=== PATIENT | female | born 1950 | race Caucasian/White ===

== ENCOUNTER 2019-12-07 11:36 | Outpatient (CLI) | payer MEDICARE, OTHER, SELFPAY ==
[2019-12-07 12:12] LABS: Alanine Aminotransferase 27 U/L (4-35); Albumin Level 4.4 g/dL (3.5-5.1); Alkaline Phosphatase 172 U/L (38-126); Aspartate Amino Transferase 29 U/L (14-36); Bilirubin,Total 0.5 mg/dL (0.2-1.3); Blood Urea Nitrogen 31 mg/dL (7-17); Calcium 9.8 mg/dL (8.4-10.2); Carbon Dioxide 28 mmol/L (22-30); Chloride 96 mmol/L (98-107); Estimated Glomerular Filt Rate 26; Glucose 384 mg/dL (65-105); Sodium 134 mmol/L (137-145)
[2019-12-07 14:11] LABS: Hemoglobin A1C 9.5 % (<5.7)
== END 2019-12-07 11:37 | disposition home or self-care (01) ==
PROVIDERS: PCP Family Medicine; Visit Provider Family Medicine
DX: E11.9 Type 2 diabetes mellitus without complications (principal); I10 Essential (primary) hypertension
CPT/HCPCS: 36415; 80053; 83036

== ENCOUNTER 2019-12-30 13:17 | Outpatient (CLI) | payer MEDICARE, OTHER, SELFPAY ==
--- NOTE | ~2019-12-30 | US_ITS ---
EXAMINATION: US retroperitoneal comp EXAM DATE: 12/30/2019 14:26 INDICATION: For chronic kidney disease. TECHNIQUE: Multiple grayscale and Doppler images of the kidneys were obtained (by a technologist who performed the scan) and subsequently reviewed. There is no prior study for comparison. FINDINGS: There is mild bilateral renal cortical thinning, atrophy. Right kidney: There is normal contour and echogenicity. It measures 9.5 x 4.5 x 4.6 centimeters. Th ere are no focal renal lesions identified. There is no hydronephrosis. Left kidney: There is normal contour and echogenicity. It measures 9.4 x 4.9 x 3.7 centimeters. The re are no focal renal lesions identified. There is no hydronephrosis. Bladder unremarkable. IMPRESSION: 1. Mild renal cortical thinning, atrophy. Reviewed, dictated and finalized at location A.
== END 2019-12-30 13:18 | disposition home or self-care (01) ==
PROVIDERS: PCP Family Medicine; Visit Provider Internal Medicine Nephrology
DX: N18.4 Chronic kidney disease, stage 4 (severe) (principal); I12.9 Hypertensive chronic kidney disease with stage 1 through stage 4 chronic kidney disease, or unspecified chronic kidney disease; E11.9 Type 2 diabetes mellitus without complications
CPT/HCPCS: 76770

== ENCOUNTER 2020-08-01 09:30 | Outpatient (RCR) | payer MEDICARE, OTHER, SELFPAY ==
[2020-05-11 09:32] VITALS: BMI 48.4
[2020-08-01 09:38] VITALS: BMI 47.7
[2020-08-01 09:39] VITALS: BMI 47.7
== END 2020-08-09 23:59 | disposition home or self-care (01) ==
LOC: ANHDMC 09:30
PROVIDERS: PCP Family Medicine; Visit Provider Physician Assistant
DX: E11.65 Type 2 diabetes mellitus with hyperglycemia (principal); Z71.3 Dietary counseling and surveillance
CPT/HCPCS: 97802; 97803

== ENCOUNTER 2020-10-11 14:30 | Outpatient (RCR) | payer MEDICARE, OTHER, SELFPAY | END 2020-11-27 09:56 | disposition home or self-care (01) | LOC: ANHDMC 14:30 | PROVIDERS: PCP Family Medicine; Visit Provider Physician Assistant | DX: E11.65 Type 2 diabetes mellitus with hyperglycemia (principal); Z71.89 Other specified counseling | CPT/HCPCS: G0108; G0109 ==

== ENCOUNTER 2020-11-09 06:35 | Outpatient (CLI) | payer MEDICARE, OTHER, SELFPAY ==
--- NOTE | 2020-11-09 06:50 | ECHO_ITS ---
Patient Info Name: Shala Lambert Age: 70 years : 1950 Gender: Female Ht: 61 in Wt: 261 lbs BSA: 2.33 m2 HR: 60 bpm BP: 150 / 85 mmHg Technical Quality: Poor Exam Date: 11/09/2020 7:15 AM Exam Location: [facility] Patient Status: Outpatient Admit Date: 11/09/2020 Staff Ordering Physician: Kareem Yeh DO Bar Tacker: Soni Bell RDCS Attending Provider: Kareem Yeh DO Referring Physician: Rao WHITE; Exam Type: CA echo dop color flow w con Study Info Indications I35.0 - Nonrheumatic aortic (valve) stenosis Complete two-dimensional, color flow and Doppler transthoracic echocardiogram is performed with contrast to opacify the left ventricle and to improve the deliniation of the left ventricle endocardial borders. Contrast/Agitated Saline Contrast/Ag. Saline: Definity Amount: 1.00 ml Administered By: Alannah Martin RN New IV Access: Antecubital Space and Right Site Condition: IV removed and No extravasation Reason for Poor Study: patient body habitus Summary 1. Left ventricular chamber dimension is normal. 2. Definity contrast administered improved wall motion interpretation. 3. Left ventricular systolic function is normal, estimated at 65-70%. 4. The left ventricular diastolic function is grade I diastolic dysfunction. 5. E/e' 14 is mildly elevated. 6. Left atrial chamber dimension is mildly enlarged. 7. There is moderate aortic valve sclerosis. 8. There is mild aortic valve stenosis with a peak velocity of 252.88 cm/s, mean gradient of 12 mmHg, and aortic valve area of 2.02 cm2. 9. The mitral valve has mildly calcified annulus. 10. There is mild mitral valve regurgitation. 11. There is trace tricuspid valve regurgitation. 12. No pulmonary hypertension, estimated pulmonary arterial systolic pressure is 23 mmHg. Left Ventricle E/e' 14 is mildly elevated. Definity contrast administered improved wall motion interpretation. Left ventricular chamber dimension is normal. Left ventricular systolic function is normal, estimated at 65-70%. The left ventricular diastolic function is grade I diastolic dysfunction. Right Ventricle Right ventricular chamber dimension is normal. Right ventricular systolic function is normal. Left Atria Left atrial chamber dimension is mildly enlarged. Right Atria Right atrial chamber dimension is normal. Aortic Valve The aortic valve is trileaflet. There is moderate aortic valve sclerosis. There is mild aortic valve stenosis with a peak velocity of 252.88 cm/s, mean gradient of 12 mmHg, and aortic valve area of 2.02 cm2. There is no aortic valve regurgitation. Pulmonic Valve There is no pulmonic regurgitation. Mitral Valve The mitral valve has mildly calcified annulus. There is no mitral valve stenosis. There is mild mitral valve regurgitation. Tricuspid Valve There is trace tricuspid valve regurgitation. No pulmonary hypertension, estimated pulmonary arterial systolic pressure is 23 mmHg. Pericardium/Pleural There is no pericardial effusion. Inferior Vena Cava Normal inferior vena cava with >50% collapse upon inspiration consistent with normal right atrial pressure, 5 mmHg. Aorta The aortic root size at the sinus of Valsalva is normal. Left Ventricular Outflow Tract Name Value Normal
== END 2020-11-09 06:36 | disposition home or self-care (01) ==
LOC: ANHCARD 06:37
PROVIDERS: PCP Family Medicine; Visit Provider Internal Medicine Cardiovascular Disease
DX: I35.0 Nonrheumatic aortic (valve) stenosis (principal); I34.0 Nonrheumatic mitral (valve) insufficiency; I51.89 Other ill-defined heart diseases
CPT/HCPCS: C8929

== ENCOUNTER 2020-11-30 09:27 | Outpatient (CLI) | payer MEDICARE, OTHER, SELFPAY ==
--- NOTE | ~2020-11-30 | MM_ITS ---
EXAMINATION: MM screening ani BI w sofiya HISTORY: Screening TECHNIQUE: Craniocaudal and mediolateral oblique 3-D tomosynthesis images were obtained and synthetic 2-D images were generated. CAD analysis was submitted and interpreted. COMPARISON: No prior mammogram is available for comparison at this institution. BREAST PARENCHYMAL COMPOSITION: There are scattered areas of fibroglandular density. FINDINGS: There are bilateral lung benign-appearing intramammary lymph nodes. There is no evidence of suspicious mass, calcification, or architectural distortion to suggest malignancy in either breast. There has been no suspicious interval change. IMPRESSION: 1. No mammographic evidence of malignancy. 2. Recommend routine screening mammography in one year. BI-RADS Category 2: Benign finding(s). Reviewed, dictated and finalized at location A.
== END 2020-11-30 09:28 | disposition home or self-care (01) ==
PROVIDERS: PCP Family Medicine
DX: Z12.31 Encounter for screening mammogram for malignant neoplasm of breast (principal)
CPT/HCPCS: 77063; 77067

== ENCOUNTER 2020-12-21 09:15 | Outpatient (RCR) | payer MEDICARE, OTHER, SELFPAY | END 2020-12-21 11:41 | disposition home or self-care (01) | LOC: ANHDMC 09:15 | PROVIDERS: PCP Family Medicine; Referring Provider Internal Medicine Endocrinology, Diabetes & Metabolism; Visit Provider Physician Assistant | DX: E11.65 Type 2 diabetes mellitus with hyperglycemia (principal); Z71.89 Other specified counseling | CPT/HCPCS: G0108 ==

== ENCOUNTER 2021-10-26 09:44 | Outpatient (CLI) | payer MEDICARE, SELFPAY ==
--- NOTE | ~2021-10-26 | DEXA_ITS ---
Bone Density Report Name: BLAINE GIBSON Age: 71 Sex: Female Ethnicity: White Date of : 1950 Indication: postmenopausal; Referring Provider: KAROL KOROMA Study: Bone densitometry was performed. Exam Date: October 26, 2021 Accession number: [id number] Bone Density: Region BMD T-score Z-score Classification AP Spine (L1-L4) 0.826 -2.0 0.1 Osteopenia Femoral Neck (Left) 0.649 -1.8 0.0 Osteopenia Total Hip (Left) 0.936 0.0 1.4 Normal Total Hip Bilateral Avg 0.875 -0.6 0.9 Normal Femoral Neck (Right) 0.565 -2.6 -0.8 Osteoporosis Total Hip (Right) 0.813 -1.1 0.4 Osteopenia World Health Organization criteria for BMD impression classify patients as: Normal (T-score at or above -1.0), Osteopenia (T-score between -1.0 and -2.5), or Osteoporosis (T-score at or below -2.5). 10-year Fracture Risk: FRAX not reported because: Some T-score for Spine Total or Hip Total or Femoral Neck at or below -2.5 Clinical Information Provided by Patient: Has used the following medications: Vitamin D, Calcium Patient maximum height was 62.5 Menopause Age: 54 No regular weight bearing exercise Drinks caffeinated beverages Onset of menses at age 15 Number of children 3 Impression: The patient has osteoporosis, based on the Right Femoral Neck T-score. Discussion: INCREASED RISK OF FRACTURE. BONE DENSITY IS UNDESIRABLY LOW AT ONE OR MORE SKELETAL SITES, CONSISTENT WITH POSTMENOPAUSAL OSTEOPOROSIS. This patient's lowest T-score meets the World Health Organization's (WHO) criteria for osteoporosis at one or more sites (T-score -2.5 or below). In untreated patients, the risk of osteoporotic fracture increases approximately two-fold for each 1.0 SD decrease in T-score. Low bone density is not the only risk factor for fracture; also consider factors such as patient's age, frailty or poor health, risk of falling, risk of injury, previous osteoporotic fracture, family history of osteoporosis, cigarette smoking, low body weight, etc. Not everyone with low bone mineral density has osteoporosis; osteomalacia and other metabolic bone disorders should also be considered. Patients who have osteoporosis should be evaluated for specific diseases and conditions (secondary causes) that may cause or contribute to bone loss. The [place] [employer] Endocrinologists (AACE) and National Osteoporosis Foundation (NOF) recommend pharmacologic intervention for all postmenopausal women whose T-score is in this range. The patient should follow a healthful lifestyle (good nutrition with adequate calcium and vitamin D, and appropriate weight-bearing exercise). Follow-Up: Consider a repeat BMD and Vertebral Fracture Assessment (VFA) exam in 2 years or sooner if medically necessary, to reassess this patient's status. Reported by: NICOLLE on 10/26/2021
== END 2021-10-26 09:45 | disposition home or self-care (01) ==
LOC: ANHIMG 09:45
PROVIDERS: PCP Family Medicine; Visit Provider Family Medicine
DX: Z78.0 Asymptomatic menopausal state (principal); M85.88 Other specified disorders of bone density and structure, other site; M85.851 Other specified disorders of bone density and structure, right thigh; M85.852 Other specified disorders of bone density and structure, left thigh; M81.0 Age-related osteoporosis without current pathological fracture
CPT/HCPCS: 77080

== ENCOUNTER 2021-12-11 15:23 | Emergency (ER) | payer MEDICARE, OTHER, SELFPAY ==
[2021-12-11] VITALS (8 sets, daily range): BP systolic 141–175; BP diastolic 71–98; PULSE 67–82; RESP 16–26; TEMP 36.6; O2SAT 94–99
--- NOTE | ~2021-12-11 | XR_ITS ---
XR chest 2V DATE: 12/11/2021 15:45 INDICATION: Shortness of breath and headache for a few days. Tachypnea. History of hypertension. TECHNIQUE: PA and lateral views COMPARISON: 07/07/2014 PA and lateral chest FINDINGS: Cardiomegaly. Aortic calcification. Moderate hiatal hernia. No pulmonary infiltrate or consolidation, pleural effusion or pulmonary vascular congestion or pneumo thorax is detected. Diffuse osteopenia. IMPRESSION: Cardiomegaly Aortic calcification Hiatal hernia No active pulmonary disease Reviewed, dictated and finalized at location A.
--- NOTE | ~2021-12-11 | CT_ITS ---
EXAMINATION: CTA chest PE protocol DATE: 12/11/2021 20:47 INDICATION: Shortness of breath TECHNIQUE: Computed tomography angiography (CTA) of the chest was performed with 100 mL Omnipaque-350 intravenous contrast timed to evaluate the pulmonary arteries. Coronal maximum intensity projection 3D-reconstructions were created by the technologist. The dose-length product (DLP) was 753.37 mGy-cm. Automated exposure control and iterative reconstruction technique were employed. COMPARISON: None. FINDINGS: The pulmonary arteries are well-opacified. No pulmonary embolism is identified. There is mi ld dependent atelectasis. No pleural effusion or pneumothorax is identified. Cardiomegaly is noted. T here are no pathologically enlarged thoracic lymph nodes. There is a moderate-sized hiatal hernia. Th ere is severe thoracic spondylosis. IMPRESSION: 1. No pulmonary embolism or acute cardiopulmonary abnormality. Reviewed, dictated and finalized at location F.
--- NOTE | 2021-12-11 15:26 | ECG_ITS ---
Measurements Intervals [place] Rate: 74 P: 43 AL: 163 QRS: -9 QRSD: 145 T: 13 QT: 433 QTc: 481 Interpretive Statements SINUS RHYTHM RIGHT BUNDLE BRANCH BLOCK [120+ ms QRS DURATION, UPRIGHT V1, 40+ ms S IN I/aVL/V4/V5/V6] NO PREVIOUS ECG AVAILABLE FOR COMPARISON Electronically Signed On 12-12-2021 13:38:44 CDT by Gris Cavazos M.D.
[2021-12-11 16:06] LABS: Basophils Absolute Auto 0.1 K/mm3 (0.0-0.1); Basophils Percent Auto 0.5 % (0.2-1.2); Eosinophils Absolute Auto 0.2 K/mm3 (0-0.3); Hematocrit 37.7 % (37.0-47.0); Hemoglobin 11.9 g/dL (12.0-15.0); Immature Granulocyte Absolute 0.04 K/mm3 (0.00-0.031); Immature Granulocyte Percent A 0.4 % (0-0.5); Lymphocytes Absolute Auto 1.97 K/mm3 (0.9-3.2); Lymphocytes Percent Auto 19.8 % (18.3-44.2); Mean Corpuscular HGB Conc 31.6 g/dl (32-36); Mean Corpuscular Hemoglobin 28.3 pg (26-34); Mean Corpuscular Volume 89.8 fl (80-100); Mean Platelet Volume 9.8 fl (7.4-10.4); Monocytes Absolute Auto 0.7 K/mm3 (0.1-0.6); Monocytes Percent Auto 6.8 % (2.6-8.5); Neutrophils Percent Auto 70.5 % (45.5-73.1); Platelet Count Result 328 k/mm3 (150-375); Red Cell Distribution Width 13.2 % (11.5-14.5); White Blood Count 9.9 K/mm3 (4.5-10.0)
[2021-12-11 16:15] LABS: Alanine Aminotransferase 41 U/L (4-35); Albumin Level 4.2 g/dL (3.5-5.1); Alkaline Phosphatase 166 U/L (38-126); Anion Gap 6 mmol/L (8-16); Aspartate Amino Transferase 44 U/L (14-36); Bilirubin,Total 0.3 mg/dL (0.2-1.3); Blood Urea Nitrogen 25 mg/dL (7-17); Calcium 9.2 mg/dL (8.4-10.2); Carbon Dioxide 28 mmol/L (22-30); Chloride 100 mmol/L (98-107); Estimated CRCL calculation 61 ml/min; Estimated Glomerular Filt Rate 55; Glucose 383 mg/dL (65-110); Potassium 4.1 mmol/L (3.4-5.0); Sodium 134 mmol/L (137-145)
[2021-12-11 17:03] LABS: Add Urine Microscopic? YES; Appearance Urine Clear (Clear); Bacteria Urine Trace /hpf; Bilirubin Urine Negative (Negative); Blood Urine Negative (Negative); Color Urine Yellow (Yellow); Glucose Urine UA 3+ mg/dL (Negative); Ketones Urine Negative (Negative); Leukocyte Esterase Ur Negative LEU/UL (Negative); Mucus Urine Rare /lpf; Nitrate Urine Negative (Negative); Protein Urine Negative (Negative); RBC Urine 0-2 /hpf (0-2); Specific Grav Ur 1.014 (1.001-1.035); Squamous Epithelial Cell Urine Occasional /hpf (Few); Urobilinogen Urine Negative mg/dL (<2.0); WBC Urine 0-3 /hpf
--- NOTE | 2021-12-11 19:16 | ED.SOB ---
HPI - SOB/Dyspnea General Chief Complaint: Shortness of Breath/Dyspnea Stated Complaint: shortness of breath Time Seen by Provider: 12/11/21 18:59 Source: patient Mode of arrival: ambulatory Limitations: no limitations History of Present Illness HPI Narrative: Pt presents with SOB for 8 days. Pt reports gradual onset. Pt denies CP. Pt says SOB is worse with exertion. Pt presents with cough with some yellow sputum production. MD elicited complaint: shortness of breath, cough, pain with inspiration (none) and chest pain (none) Pertinent past history: congestive heart failure and diabetes Context: recent illness (cold symptoms) Timing: progressively worsening Severity: moderate Exacerbating factors: lying flat and exertion Relieving factors: nothing Known history of: congestive heart failure and diabetes Associated symptoms: wheezing and sputum production Related Data Home Medications Medication Instructions Recorded Confirmed calcium carbonate 500 mg calcium 1,000 mg PO DAILY tablet 08/19/19 11/06/21 (1,250 mg) chewable tablet ferrous sulfate 325 mg (65 mg 325 mg PO DAILY 08/19/19 11/06/21 iron) tablet krill [id number] 300 3 cap PO DAILY cap 04/27/20 11/06/21 mg-90 mg (27 mg-45 mg) capsule cholecalciferol (vitamin D3) 50 50 mcg PO DAILY 11/06/21 11/06/21 mcg (2,000 unit) capsule Allergies Allergy/AdvReac Type Severity Reaction Status Date / Time Penicillins Allergy Unknown Rash Verified 12/11/21 18:58 metformin AdvReac Severe Diarrhea Verified 12/11/21 18:58 Review of Systems Review of Systems: All systems reviewed & are unremarkable except as noted in HPI and below PMFSH Past Medical History Medical History (Updated 12/11/21 @ 21:38 by Tiffany Alexandre III, ) Anemia Arthritis, multiple joint involvement Chronic pain of right ankle Dyslipidemia GERD (gastroesophageal reflux disease) Hemoglobin A1c greater than 8.0 percent 08/01/20 A1c = 8.3 Hypertension Iron deficiency Morbid obesity with BMI of 50.0-59.9, adult SOFIA on CPAP Osteoporosis SOB (shortness of breath) Trigger finger, right ring finger Type 2 diabetes mellitus with hyperglycemia Vitamin D deficiency Surgical History Surgical History History of carpal tunnel release left, 09/11/2011, Dr. Chew History of open reduction and internal fixation (ORIF) procedure right ankle History of tubal ligation Hx of arthroscopy of right knee 06/29/2014- Dr. Chew Family History Family History Sibling Diabetes mellitus Father Family history of hypercholesterolemia Family history of cardiovascular disease Family history of coronary artery disease Family history of thoracic aortic aneurysm Mother Family history of malignant neoplasm of ovary Other Cancer Cerebrovascular accident Family history of arthritis Family history of malignant neoplasm Family history of malignant neoplasm of esophagus Hearing loss Hypertension Liver cancer Prostate disease Social History Social History Second hand tobacco smoke exposure: Yes Alcohol intake: current Alcohol use details: Rarely Substance use: never Substance use type: does not use Additional occupation/education comments: Works apartment community manager at the school Gender identity (if verbalized by the patient): Female Spiritual care concerns: No Agree to blood products: Yes Exam Const: General: no acute distress Orientation/consciousness: patient oriented x3 HENMT: Head: normal to inspection Chest: Chest palpation & inspection: normal inspection of the chest Resp: Effort & Inspection: normal respiratory effort Auscultation: wheezes Cardio: Rate: regular rate Rhythm: regular rhythm GI: GI Palp: Yes Soft to palpation Auscultation: normal bowel sounds Neuro: General: patient o
[2021-12-11] MEDS: IPRATROPIUM BR 0.02% INH SOLN 0.5 MG/2.5 ML VIAL INHALATION (19:19)
[2021-12-11] MEDS: ALBUTEROL SULFATE NEB 2.5 MG/0.5 ML INH INHALATION ×2 (19:19→21:10)
[2021-12-11 19:38] LABS: NT Pro B Type Natriuretic Pept 132 pg/mL (5-100); Troponin I < 0.012 ng/mL (0.000-0.034)
[2021-12-11 20:00] LABS: D Dimer 1.19 ug/mL (<0.48)
[2021-12-11] MEDS: methylPREDNISolone SOD SUCC 125 MG VIAL IV PUSH (21:19)
== END 2021-12-11 22:10 | disposition home or self-care (01) ==
PROVIDERS: Emergency Medicine; Emergency Provider Emergency Medicine; PCP Family Medicine
DX: J20.9 Acute bronchitis, unspecified (principal); I50.9 Heart failure, unspecified; E11.9 Type 2 diabetes mellitus without complications; E78.5 Hyperlipidemia, unspecified; I11.0 Hypertensive heart disease with heart failure; E66.01 Morbid (severe) obesity due to excess calories; G47.33 Obstructive sleep apnea (adult) (pediatric); Z79.899 Other long term (current) drug therapy; Z88.0 Allergy status to penicillin; Z88.8 Allergy status to other drugs, medicaments and biological substances; Z68.43 Body mass index [BMI] 50.0-59.9, adult
CPT/HCPCS: 36415; 71046; 71275; 80053; 81001; 83880; 84484; 85025; 85380; 93005; 94640; 96374; 99285; J2930; Q9967

== ENCOUNTER 2022-03-06 11:42 | Outpatient (CLI) | payer MEDICARE, OTHER, SELFPAY ==
--- NOTE | ~2022-03-06 | MM_ITS ---
EXAMINATION: MM screening ani BI w sofiya HISTORY: Screening TECHNIQUE: Craniocaudal and mediolateral oblique 3-D tomosynthesis images were obtained and synthetic 2-D images were generated. CAD analysis was submitted and interpreted. COMPARISON: 11/30/2020 BREAST PARENCHYMAL COMPOSITION: There are scattered areas of fibroglandular density. FINDINGS: There is no evidence of suspicious mass, calcification, or architectural distortion to sugg est malignancy in either breast. There has been no suspicious interval change. IMPRESSION: 1. No mammographic evidence of malignancy. 2. Recommend routine screening mammography in one year. BI-RADS Category 1: Negative Reviewed, dictated and finalized at location D.
== END 2022-03-06 11:43 | disposition home or self-care (01) ==
LOC: ANHIMG 11:49
PROVIDERS: PCP Family Medicine; Visit Provider Family Medicine
DX: Z12.31 Encounter for screening mammogram for malignant neoplasm of breast (principal)
CPT/HCPCS: 77063; 77067

== ENCOUNTER 2022-11-19 12:23 | Outpatient (CLI) | payer MEDICARE, SELFPAY ==
--- NOTE | 2022-11-19 12:26 | ECHO_ITS ---
Patient Info Name: Shala Lambert Age: 72 years : 1950 Gender: Female Ht: 61 in Wt: 255 lbs BSA: 2.31 m2 HR: 68 bpm BP: 118 / 77 mmHg Technical Quality: Fair Exam Date: 11/19/2022 12:49 PM Exam Location: [facility] Patient Status: Outpatient Admit Date: 11/19/2022 Staff Ordering Physician: Kareem Yeh DO Avionics Supervisor: Soni Bell RDCS Attending Provider: Kareem Yeh DO Referring Physician: Rao WHITE; Exam Type: CA echo dop color flow w con Study Info Indications I35.0 - Nonrheumatic aortic (valve) stenosis Complete two-dimensional, color flow and Doppler transthoracic echocardiogram is performed with contrast to opacify the left ventricle and to improve the deliniation of the left ventricle endocardial borders. Contrast/Agitated Saline Contrast/Ag. Saline: Definity Amount: 4.00 ml Administered By: Soni Bell RDCS New IV Access: Dorsum of Hand Site Condition: No extravasation, Site dressing applied and IV removed Summary 1. Left ventricular chamber dimension is normal. 2. Definity contrast administered Empty wall motion interpretation. 3. Left ventricular systolic function is normal, estimated at 65-70%. 4. There is mild concentric increased left ventricular wall thickness. 5. The left ventricular diastolic function is grade I diastolic dysfunction. 6. E/e' 14 is mildly elevated. 7. Left atrial chamber dimension is moderately enlarged. 8. There is moderate aortic valve sclerosis. 9. There is mild aortic valve stenosis with a peak velocity of 254.95 cm/s, mean gradient of 12 mmHg, and aortic valve area of 2.03 cm2. 10. The mitral valve has mildly calcified annulus. 11. No pulmonary hypertension, estimated pulmonary arterial systolic pressure is 26 mmHg. Left Ventricle E/e' 14 is mildly elevated. Definity contrast administered Empty wall motion interpretation. Left ventricular chamber dimension is normal. Left ventricular systolic function is normal, estimated at 65-70%. There is mild concentric increased left ventricular wall thickness. The left ventricular diastolic function is grade I diastolic dysfunction. Right Ventricle Right ventricular chamber dimension is normal. Right ventricular systolic function is normal. Left Atria Left atrial chamber dimension is moderately enlarged. Right Atria Right atrial chamber dimension is normal. Aortic Valve The aortic valve is probable trileaflet. There is moderate aortic valve sclerosis. There is mild aortic valve stenosis with a peak velocity of 254.95 cm/s, mean gradient of 12 mmHg, and aortic valve area of 2.03 cm2. There is no aortic valve regurgitation. Pulmonic Valve There is no pulmonic regurgitation. Mitral Valve The mitral valve has mildly calcified annulus. There is no mitral valve stenosis. There is no mitral valve regurgitation. Tricuspid Valve There is no tricuspid valve regurgitation. No pulmonary hypertension, estimated pulmonary arterial systolic pressure is 26 mmHg. Pericardium/Pleural There is no pericardial effusion. Inferior Vena Cava Normal inferior vena cava with >50% collapse upon inspiration consistent with normal right atrial pressure, 5 mmHg. Aorta The aortic root size at the sinus of Valsalva is normal. Left Ventricular Outflow Tract Name Value Normal
[2022-11-19] MEDS: PERFLUTREN LIPID MICROSPHERES 1.5 ML VIAL DILUTED TO 10 ML TOTAL VOLUME IV PUSH (13:50)
== END 2022-11-19 12:24 | disposition home or self-care (01) ==
LOC: ANHCARD 12:24
PROVIDERS: PCP Family Medicine; Visit Provider Internal Medicine Cardiovascular Disease
DX: I35.0 Nonrheumatic aortic (valve) stenosis (principal); I35.8 Other nonrheumatic aortic valve disorders
CPT/HCPCS: C8929; Q9957

== ENCOUNTER 2023-07-22 16:38 | Outpatient (CLI) | payer MEDICARE, SELFPAY ==
--- NOTE | ~2023-07-22 | MM_ITS ---
EXAMINATION: MM screening ani BI w sofiya HISTORY: Screening mammogram TECHNIQUE: Craniocaudal and mediolateral oblique 3-D tomosynthesis images were obtained and synthetic 2-D images were generated. CAD analysis was submitted and interpreted. COMPARISON: 03/06/2022, 11/30/2020 BREAST PARENCHYMAL COMPOSITION: There are scattered areas of fibroglandular density. FINDINGS: No suspicious mass, calcification, or architectural distortion are identified in either myriam ast to suggest malignancy. There has been no suspicious interval change. IMPRESSION: 1. No mammographic evidence of malignancy. 2. Recommend routine screening mammography in one year. BI-RADS Category 1: Negative Reviewed, dictated and finalized at location A. SETTER APPRENTICE
== END 2023-07-22 16:39 | disposition home or self-care (01) ==
PROVIDERS: PCP Family Medicine; Visit Provider Family Medicine
DX: Z12.31 Encounter for screening mammogram for malignant neoplasm of breast (principal)
CPT/HCPCS: 77063; 77067

== ENCOUNTER 2023-10-30 10:24 | Outpatient (CLI) | payer MEDICARE, SELFPAY ==
[2023-10-30 11:00] LABS: Alanine Aminotransferase 26 U/L (6-35); Aspartate Amino Transferase 29 U/L (14-36)
== END 2023-10-30 10:25 | disposition home or self-care (01) ==
LOC: ANHLAB 10:28
PROVIDERS: PCP Family Medicine; Visit Provider Podiatrist Foot & Ankle Surgery
DX: B35.1 Tinea unguium (principal)
CPT/HCPCS: 36415; 84450; 84460

== ENCOUNTER 2023-11-19 10:27 | Outpatient (CLI) | payer MEDICARE, SELFPAY ==
--- NOTE | ~2023-11-19 | DEXA_ITS ---
Bone Density Report Name: BLAINE GIBSON Age: 73 Sex: Female Ethnicity: White Date of : 1950 Indication: postmenopausal; screening for osteoporosis; height loss; history of glucocorticoids; hysterectomy; Referring Provider: RONEN CARRILLO Study: Bone densitometry was performed. Exam Date: November 19, 2023 Accession number: [id number] Bone Density: Region BMD T-score Z-score Classification AP Spine(L1-L4) 0.842 -1.9 0.3 Osteopenia Femoral Neck (Left) 0.617 -2.1 -0.2 Osteopenia Total Hip (Left) 0.980 0.3 1.9 Normal Femoral Neck (Right) 0.607 -2.2 -0.3 Osteopenia Total Hip (Right) 0.834 -0.9 0.7 Normal Total Hip Mean 0.907 -0.3 1.3 Normal World Health Organization criteria for BMD impression classify patients as: Normal (T-score at or above -1.0), Osteopenia (T-score between -1.0 and -2.5), or Osteoporosis (T-score at or below -2.5). 10-year Fracture Risk: FRAX not reported because: Treated for osteoporosis Clinical Information Provided by Patient: Has taken Glucocorticoids Is being treated for osteoporosis Has used the following medications: Vitamin D Has the following medical conditions: Hysterectomy Patient maximum height was 62 Menopause Age: 57 No regular weight bearing exercise Drinks caffeinated beverages Onset of menses at age 15 Number of children 3 Impression: The patient has low bone mass, based on the Right Femoral Neck T-score. The patient has risk factors, including: history of glucocorticoid therapy. Discussion: It is important to ask patients whether they are taking their medications and to encourage continued and appropriate compliance with their osteoporosis therapies to reduce fracture risk. It is also important to review their risk factors and encourage appropriate calcium and vitamin D intakes, exercise, fall prevention and other lifestyle measures. Follow-Up: Consider a repeat BMD and Vertebral Fracture Assessment (VFA) exam in 2 years or sooner if medically necessary, to reassess this patient's status. Reported by: NICOLLE on 11/19/2023 11:00:00 AM. Reviewed, dictated and finalized at location A. [place]
== END 2023-11-19 10:28 | disposition home or self-care (01) ==
LOC: ANHIMG 10:28
PROVIDERS: PCP Family Medicine; Visit Provider Nurse Practitioner Family
DX: Z78.0 Asymptomatic menopausal state (principal); R79.89 Other specified abnormal findings of blood chemistry; E55.9 Vitamin D deficiency, unspecified; M85.89 Other specified disorders of bone density and structure, multiple sites
CPT/HCPCS: 77080

== ENCOUNTER 2024-01-21 11:36 | Outpatient (CLI) | payer MEDICARE, SELFPAY ==
[2024-01-21 12:26] LABS: Creatinine Urine 37.1 mg/dL; Total Protein Urine Random 8 mg/dL; Ur Ttl Prot Creatinine Ratio 0.22 mg/mg (0-0.20)
[2024-01-21 12:27] LABS: Albumin Level 4.3 g/dL (3.5-5.1); Anion Gap 6 mmol/L (4-12); Blood Urea Nitrogen 33 mg/dL (7-17); Carbon Dioxide 28 mmol/L (22-30); Chloride 104 mmol/L (98-107); Estimated Glomerular Filt Rate 34; Glucose 211 mg/dL (65-110); Phosphorus 3.5 mg/dL (2.5-4.5); Sodium 138 mmol/L (137-145)
[2024-01-21 12:39] LABS: Parathyroid Intact 107.7 pg/mL (7.5-53.5)
[2024-01-21 12:52] LABS: Vitamin D 25 Hydroxy 50.4 ng/mL
== END 2024-01-21 11:37 | disposition home or self-care (01) ==
LOC: ANHLAB 11:40
PROVIDERS: PCP Family Medicine; Visit Provider Internal Medicine Nephrology
DX: N18.32 Chronic kidney disease, stage 3b (principal); I12.9 Hypertensive chronic kidney disease with stage 1 through stage 4 chronic kidney disease, or unspecified chronic kidney disease; E11.22 Type 2 diabetes mellitus with diabetic chronic kidney disease; N25.81 Secondary hyperparathyroidism of renal origin; E55.9 Vitamin D deficiency, unspecified
CPT/HCPCS: 36415; 80069; 82306; 82570; 83970; 84156

== ENCOUNTER 2024-05-06 08:28 | Outpatient (CLI) | payer MEDICARE, SELFPAY ==
[2024-05-06 09:24] LABS: Cholesterol 171 mg/dL (0-200); HDL Direct 59 mg/dL; Triglycerides 215 mg/dL (<150)
[2024-05-06 09:29] LABS: Albumin Level 4.5 g/dL (3.5-5.1); Anion Gap 7 mmol/L (4-12); Blood Urea Nitrogen 23 mg/dL (7-17); Calcium 9.9 mg/dL (8.4-10.2); Carbon Dioxide 28 mmol/L (22-30); Chloride 100 mmol/L (98-107); Estimated Glomerular Filt Rate 44; Glucose 163 mg/dL (65-110); Phosphorus 3.2 mg/dL (2.5-4.5); Potassium 4.2 mmol/L (3.4-5.0); Sodium 135 mmol/L (137-145)
[2024-05-06 09:35] LABS: LDL Cholesterol Direct 70 mg/dL
[2024-05-06 10:22] LABS: Creatinine Urine 32.7 mg/dL; Total Protein Urine Random 12 mg/dL; Ur Ttl Prot Creatinine Ratio 0.37 mg/mg (0-0.20)
== END 2024-05-06 08:29 | disposition home or self-care (01) ==
LOC: ANHLAB 08:32
PROVIDERS: PCP Family Medicine; Referring Provider Family Medicine; Visit Provider Internal Medicine Nephrology
DX: I12.9 Hypertensive chronic kidney disease with stage 1 through stage 4 chronic kidney disease, or unspecified chronic kidney disease (principal); N18.32 Chronic kidney disease, stage 3b; E11.22 Type 2 diabetes mellitus with diabetic chronic kidney disease; E78.2 Mixed hyperlipidemia
CPT/HCPCS: 36415; 80061; 80069; 82570; 84156

== ENCOUNTER 2024-09-13 12:07 | Outpatient (CLI) | payer MEDICARE, SELFPAY ==
--- OUTSIDE RECORDS SUMMARY | 2024-09-13 12:49 | XMS_ITS | Clinical Summary ---
Author Organization [facility] Address [address] [place] [address] Care Team Providers Care [employer] Electric Locomotive Name Role Phone Windy Stark MD Unavailable [phone] Alexa Roberts MD Primary Care Provider [phone] Allergies Active Allergy Reactions Criticality Noted Date Comments Metformin Diarrhea Low 12/26/2019 Penicillin G Rash Medium 07/06/2019 Penicillins Rash Medium 02/06/2022 Medications traMADoL (ULTRAM) 50 mg tabletIndicatio ns:Pain Take 1 tablet (50 mg total) by mouth every 6 (six) hours as needed 11/20/2021 Active rosuvastatin (CRESTOR) 40 mg tabletIndicatio ns:hyperlipidem ia Take 1 tablet (40 mg total) by mouth nightly 01/02/2022 Active irbesartan (AVAPRO) 300 mg tabletIndicatio ns:hypertension Take 1 tablet (300 mg total) by mouth every morning 12/25/2021 Active insulin lispro (HumaLOG, ADMELOG) 100 unit/mL pen for injectionIndica tions:type 2 diabetes mellitus 01/23/2022 Active LANTUS 100 unit/mL (3 mL) pen for injectionIndica tions:DM2 Inject 38 Units under the skin every morning 02/01/2022 Active hydroCHLOROthia zide (HYDRODIURIL) 25 mg tabletIndicatio ns:Edema Take 1 tablet (25 mg total) by mouth every morning 11/19/2021 Active gabapentin (NEURONTIN) 100 mg capsuleIndicati ons:Neuropathic Pain Take 1 capsule (100 mg total) by mouth 3 (three) times a day Usually just take at night 10/11/2021 Active FLUoxetine (PROzac) 20 mg capsuleIndicati ons:depression Take 1 capsule (20 mg total) by mouth every morning 11/28/2021 Active omega-3s/dha/ep a/fish oil (OMEGA 3 ORAL)Indication s:Heart health Take 1 capsule by mouth 2 (two) times a day Active ferrous sulfate 325 mg (65 mg of elemental iron) tabletIndicatio ns:Iron Deficiency Anemia Take 1 tablet (325 mg total) by mouth every morning Active cholecalciferol (VITAMIN D-3) 2000 unit capsuleIndicati ons:Vitamin D Deficiency Take 1.5 capsules (3,000 Units total) by mouth every morning Active famotidine (PEPCID) 10 mg tabletIndicatio ns:gastroesopha geal reflux disease Take 1 tablet (10 mg total) by mouth nightly Active acetaminophen ER (TYLENOL) 650 mg 8 hr tabletIndicatio ns:Arthritic Pain,Pain Take 1 tablet (650 mg total) by mouth every 8 (eight) hours as needed for pain Active ascorbic acid (VITAMIN C) 500 mg tablet,chewable Indications:sup plement Take 1 tablet/chew tab (500 mg total) by mouth daily with lunch Active Gvoke HypoPen 2-Pack 1 mg/0.2 mL auto-injector 10/30/2022 Activ e TechLITE Pen Needle 31 gauge x 5/16 needle USE FOUR TIMES DAILY 09/03/2022 Active Farxiga 10 mg tablet Take 10 mg by mouth every morning 10/25/2022 Active Ozempic 2 mg/dose (8 mg/3 mL) pen injector injection 09/02/2022 Active Active Problems Problem Noted Date Diagnosed Date Chronic kidney disease 07/09/2022 Diastolic heart failure 07/09/2022 Morbid obesity 07/09/2022 Osteoarthritis 07/09/2022 Screening for cervical cancer 02/12/2022 Overview (02/12/2022): 02/06/22 - Pap - Negative, HPV negative Women's annual routine gynecological examination 02/06/2022 Assessment & Plan (11/07/2022 11:01 AM CDT): Here for annual exam. Normal rollway man exam today. Encouraged regular exercise and healthy diet and lifestyle. Monthly SBEs encouraged. Annual mammograms recommended. Assessment & Plan (02/06/2022 12:33 PM CDT): Check pap with HPV - been over a year since her last pap and pt has h/o LEEP. See notes on obtaining sample. Reviewed I feel this will be helpful in guiding plan of care. Patient verbalizes understanding. H/O pelvic ultrasound 02/06/2022 Overview (02/06/2022): 01/2022 US for PMB: EMC 1.2cm. R OV NL. L Adnexa ~3.4cm hypoechoic mass ovary v. Bowel. suboptimal visualization due to bowel/pt habitus. Right atrial enlargement 02/07/2021 Sleep apnea 05/10/2015 Depressive disorder 03/29/2015 Diabetes mellitus 03/29/2015 Gastroesophageal reflux disease 03/29/2015 Hypercholesterolemia 03/29/2015 Hypertensive disorder 03/29/2015 Osteopenia 03/29/2015 Resolved Problems Problem Noted Date Diagnosed Date Resolved Date Postoperative state 09/30/2022 11/08/19 Postmenopausal bleeding 02/13/202208/18 Overview (02/13/2022): Added automatically from request for surgery [id number] Assessment & Plan (05/20/2022 1:47 PM CDT): Discussed ultrasound findings with patient in detail today. Lining is still appears somewhat thickened for someone postmenopausal. It is unclear whether patient had postmenopausal spotting again or if it was withdrawal from the progesterone medication since it was more than a week after completing the medication. Patient desires 2nd opinion with rollway man oncologist. Assessment & Plan (03/15/2022 4:13 PM CDT): Discussed with patient the potential risk of undiagnosed abnormal cells of the uterine lining or uterine cancer. Discussed the option of seeing [facility] Oncology for 2nd opinions and pathology was negative. I recommend patient see [facility] Oncology if she has any additional recurrence postmenopausal bleeding. Patient prefers not to see them at this time unless she has additional bleeding. I recommend progesterone withdrawal at the beginning of March with follow-up ultrasound to make sure the lining appears thinner. Patient agreeable to this plan. Patient to call with any problems.. Discussed risks benefits and potential side effects of the medication. Thickened endometrium 02/06/20222022 Assessment & Plan (02/06/2022 2:52 PM CDT): Us today revealed thickened EMC. R/w pt. Discussed need for endometrial biopsy to rule out uterine cancer with Hyst D&C. Also discussed that due to adnexal finding we need to have CWW US to evaluate first before doing Hyst D&C with Dr. Stark. Reviewed procedure and expectations, risks. Gave pt pamphlet for her to review. Will notify staff to start process of setting up. Patient verbalizes understanding. Reviewed visit with Dr. Stark - agrees with plan of care. Sent for cosign. Mass of uterine adnexa 02/06/202209/03 Overview (02/12/2022): 01/2022: CA125 WNL. F/U US at [facility] shows 2 benign appearing simple cysts left ovary Assessment & Plan (02/06/2022 12:32 PM CDT): R/w pt US findings. Discussed it's limiting to see if this is an adnexa mass or bowel. Recommend checking CWW US to further evaluate adnexa. Check CA 125 to help guide us as well. Reviewed limitations of CA 125 but why we do it. Patient verbalizes understanding. Immunizations Name Administration Dates Next Due Influenza, Quadrivalent, Spl it, Intramuscular 06/14/2019 Pneumococcal Polysaccharide PPV23 08/21/2011 Sars-CoV-2, Unspecified 05/27/2021,12/25/2020, Tdap 08/21/2011 Surgical History Surgery Date Site/Laterality Comments TUBAL LIGATION FOOT SURGERY Right tumor removed EYE SURGERY Blocked gland CARPAL TUNNEL RELEASE 08/18/2004 - 08/17/2005 Bilateral left KNEE SURGERY Bilateral CERVICAL BIOPSY W/ LOOP ELECTRODE EXCISION Benign - margins clear PARTIAL KNEE ARTHROPLASTY 12/12/2013 MENISCUS SURGERY 07/01/2014 Right TOTAL ANKLE REPLACEMENT 01/21/2017 CARPAL TUNNEL RELEASE 08/18/1994 - 08/17/1995 Right HYSTEROSCOPY 03/04/2022 D&C for PMB / thick lining but path negative LAPAROSCOPIC HYSTERECTOMY 08/20/2022 TLHBSO/ benign path/ [facility] Medical History Medical History Date Comments Right atrial enlargement Sees [facility] rdiology Sleep apnea Diabetes mellitus (HCC) Depression Hyperlipemia Hypertension GERD (gastroesophageal reflux disease) Osteoporosis Covid-19 02/13/2022 Family History Medical History Relation Name Comments 84y, angina Father Esophageal cancer Father Prostate cancer Father Diabetes Maternal Grandmother Ovarian cancer Mother Passed at 47 yo. Liver disease Paternal Grandmother Hypertension Sister Relation Name Status Comments Father Maternal Grandmother Mother Paternal Grandmother Sister Social History Tobacco Use Types Packs/Day Years Used Date Smoking Tobacco: Never Passive Smoke Exposure: Current Smokeless Tobacco: Never AUDIT-C Answer Date Recorded Frequency of Alcohol Consumption Not on file 11/07/2022 Q2: How many drinks containi ng alcohol do you have on a typical day when you are drinking? 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[employer] - [employer] Not on file Not on file Not on file Obstetrics History Para Term AB IAB SAB Ectopic Multiple Livin g Live Births 3 3 3 3 Date Outcome GA Total Labor Labor/2nd/3rd Weight Sex Type Anes PTL Brittany A1 A5 Name Clin Term Vag-Spo nt Term Vag-Spo nt Term Vag-Spo nt Comments H/o LEEP Me nopause at age 54y Last Filed Vital Signs Vital Sign Reading Time Taken Comments Blood Pressure 142/84 11/07/2022 10:15 AM CDT Pulse 73 09/30/2022 2:11 PM CONCRETE CONVEYOR OPERATOR Temperature 35.6 ??C (96 ??F) 09/30/2022 2:11 PM CONCRETE CONVEYOR OPERATOR Respiratory Rate 16 09/30/2022 2:11 PM CONCRETE CONVEYOR OPERATOR Oxygen Saturation 98% 09/30/2022 2:11 PM CONCRETE CONVEYOR OPERATOR Inhaled Oxygen Concentration - - Weight 116.3 kg (256 lb 6.4 oz) 023 10:15 AM CDT Height 154.9 cm (5' 1 ) 11/07/2022 10:1 5 AM CDT Body Mass Index 48.45 11/07/2022 10:15 AM CDT Plan of Treatment Health Maintenance Due Date Last Done Comments Albumin Creatinine Ratio, Urine 1952 Colon Cancer Screening-Colonoscopy 1950 Depression Screening 1950 Hepatitis C Screening 1950 Dilated Eye Exam 1952 Foot Exam 1952 Lipid Panel 1952 Hepatitis B Screening 02/28/1970 Zoster Vaccine (1 of 2) 02/28/2002 Pneumococcal vaccine 65+ (2 of 2 - PCV) 08/21/2012 08/21/2011 Breast Cancer Screening-Mammogram 09/14/2020 09/14/2019, 09/09/2017, 07/08/2016, Additional history exists DTaP/Tdap/Td Vaccine (2 - Td or Tdap) 08/21/2021 08/21/2011 Osteoporosis Screening-Bone Density Scan 09/14/2021 09/14/2019, 05/10/2015 Hemoglobin A1C 12/25/2022 06/27/2022 eGFR 07/05/2023 07/05/2022, 06/18, 01/22/2017 Fall Risk Assessment 08/20/2023 08/20/2022 Well Visit 65+ 11/08/2023 11/07/2022 Influenza Vaccine (#1) 2024 06/14/2019 Medical Devices Implanted Type Area Grocery Store Bagger Device Identifier Shelf Expiration Date Model / Serial / Lot Knee Left: Knee Screw Right: Ankle Procedures Procedure Name Priority Date/Time Associated Diagnosis Comments EGFR STAT 07/05/2022 8:33 AM CONCRETE CONVEYOR OPERATOR POCT HEMOGLOBIN A1C Routine 06/27/2022 9:39 AM CONCRETE CONVEYOR OPERATOR DEXA AXIAL SKELETON BONE DENSITY 1 OR MORE SITES Schedule Routine, Read Routine (OP Routine) 09/14/2019 10:34 AM CONCRETE CONVEYOR OPERATOR Asymptomatic menopausal state SCREENING MAMMOGRAM BILATERAL W ALFONZO Schedule Routine, Read Routine (OP Routine) 09/14/2019 10:09 AM CONCRETE CONVEYOR OPERATOR Encounter for screening mammogram for malignant neoplasm of breast from Last 3 Months or Most Recently Relevant to Health Maintenance Results * (ABNORMAL) eGFR (07/05/2022 8:33 AM CONCRETE CONVEYOR OPERATOR) eGFR 45(L) 90 - 130 mL/min/1. 73 m2 [facility] Comment: Interpretive Data Reference Interval Normal ?>/= 90 mL/min/1.73m2 Mildly decreased* ? 60 - 89 mL/min/1.73m2 Mildly to moderately decreased ?45 - 59 mL/min/1.73m2 Moderately to severely decreased ??30 - 44 mL/min/1.73m2 Severely decreased ?15 - 29 mL/min/1.73m2 Kidney Failure ?< 15 ??mL/min/1.73m2 *Relative to young adult level Estimated glomerular filtration rate is determined by the 2020 CKD-EPI equation recommended by the National Kidney Foundation (A Unifying Approach to GFR Estimation: Recommendations of the NKF-ASK Task Force on Reassessing the Inclusion of Race in Diagnosing Kidney Disease, JASN 202). The CKD-EPI equation should not be used for patients with unstable renal function and has not been validated in children and those over 70. Current interpretive data was last reviewed 2021. Blood 07/05/2022 8:33 AM CONCRETE CONVEYOR OPERATOR 07/05/2022 8:52 AM CONCRETE CONVEYOR OPERATOR us David Jiménez MD PhD LAB BLOOD ORDERABLES Fi nal Result [facility] Department [place] [address] * (ABNORMAL) POCT hemoglobin A1c (06/27/2022 9:39 AM CONCRETE CONVEYOR OPERATOR) Hgb A1C, POC 8.8(H) 4.0 - 5.6 % [facility] Est Average Gluc POC 206 mg/dL [facility] Comment: The ADA recommends reporting an estimated Average Glucose (eAG) with all Hemoglobin A1c results using the equation derived from a study of 507 normal and diabetic adults. ??Minority populations were underrepresented and children were not included. ?? (Diabetes Care 31:1479-8614, 2008). ??The eAG is not equivalent to a fasting glucose. Blood 06/27/2022 9:39 AM CONCRETE CONVEYOR OPERATOR 06/27/2022 9:39 AM CONCRETE CONVEYOR OPERATOR Windy Stark MD POINT OF CARE TEST ORDERABL ES Final Result [facility] Department [place] [address] * Dexa Axial Skeleton Bone Density 1 or 2 Site (09/14/2019 10:34 AM CONCRETE CONVEYOR OPERATOR) Anatomical Region Laterality Modality Body N/A Digital Radiogra phy 09/14/2019 1:03 PM CONCRETE CONVEYOR OPERATOR Impressions 09/14/2019 1:06 PM CONCRETE CONVEYOR OPERATOR Low bone mass (osteopenia) which depending on the clinical circumstances may result in a moderate increased risk of fragility fracture. If followup is to be done, for technical reasons, it should be performed on this same machine. Electronically signed by: Saturnino Marion M.D. Narrative 09/14/2019 1:06 PM CONCRETE CONVEYOR OPERATOR EXAM: ??Bone mineral density [facility]. HISTORY: ??Osteopenia postmenopausal. DXA BMD was done at [facility] on a Heyzap CI. Precision testing at this site has resulted in a least significant change of: Lumbar spine 0.031 g/sq cm Total Hip 0.026 g/sq cm Femoral neck 0.041 g/sq cm BMD L1-L4 is 0.85 g/sq cm corresponding to a T score of -1.8. BMD left femoral neck is 0.697 g/sq cm corresponding to a T score of -1.4. BMD total left hip is 0.868 g/sq cm corresponding to a T score of 0.6. COMPARISON: ??As compared to 05/10/2015, lumbar spine bone density has increased by 4.8%. ??Left total hip bone density has decreased by 1.9% and femoral neck bone density has increased by 2.9%. Procedure Note Saturnino Marion MD - 09/14/2019 EXAM: Bone mineral density [facility]. HISTORY: Osteopenia postmenopausal. DXA BMD was done at [facility] on a Heyzap CI. Precision testing at this site has resulted in a least significant change of: Lumbar spine 0.031 g/sq cm Total Hip 0.026 g/sq cm Femoral neck 0.041 g/sq cm BMD L1-L4 is 0.85 g/sq cm corresponding to a T score of -1.8. BMD left femoral neck is 0.697 g/sq cm corresponding to a T score of -1.4. BMD total left hip is 0.868 g/sq cm corresponding to a T score of 0.6. COMPARISON: As compared to 05/10/2015, lumbar spine bone density has increased by 4.8%. Left total hip bone density has decreased by 1.9% and femoral neck bone density has increased by 2.9%. IMPRESSION: Low bone mass (osteopenia) which depending on the clinical circumstances may result in a moderate increased risk of fragility fracture. If followup is to be done, for technical reasons, it should be performed on this same machine. Electronically signed by: Saturnino Marion M.D. Windy Stark MD IM DXA PROCEDURES Final Re sult * Screening Mammogram Bilateral W Alfonzo (09/14/2019 10:09 AM CONCRETE CONVEYOR OPERATOR) Anatomical Region Laterality Modality Breast Bilateral Mammography Narrative 09/15/2019 7:24 AM CONCRETE CONVEYOR OPERATOR Screening Mammogram Bilateral W Alfonzo: 09/14/19 Clinical: Encounter for screening mammogram for malignant neoplasm of breast. ?? Prior Study Comparisons: Comparison was made to the prior available relevant studies at the time of interpretation. Findings: Bilateral No significant masses, malignant type calcifications, skin thickening, nipple retraction, or significant lymphadenopathy is noted in either breast. ??The CAD review showed no significant findings. The breasts have scattered areas of fibroglandular density. The patient will be notified of results by letter. Impression: BI-RADS?? ATLAS category (overall): 1 Negative ?? There is no mammographic evidence of malignancy. Routine Screening Mammogram in 1 Yr is recommended for bilateral Overall Assessment: 1 - Negative Result [facility] Windy Stark MD IMG MAMMO PROCEDURES Final Result from Last 3 Months or Most Recently Relevant to Health Maintenance Insurance MEDICARE SOLUTIONS Member Subscriber Plan / Payer ( fective 2022-Present) Name:DavidrussMelissaShala M Relation to Subscriber:Self Name:Melissa Lambertgenevieve Diggs Payer ID:[id number] (NAIC) Type:[facility] MEDICARE Address: [place] [id number] MEDICARE SOLUTIONS Care Teams [employer] Relationship Specialty Start Date End Date Alexa Roberts MD [address] [place], [place] [id number] PCP - General Family Medicine 02/12/22 Windy Stark MD [address] [place], [place] [id number] Consulting Physician Obstetrics and Gynecology 02/06/22
--- OUTSIDE RECORDS SUMMARY | 2024-09-13 12:49 | XMS_ITS | Referral Summary ---
Author Organization [facility] Address [address] [place] [address] Care Team Providers Care Metal Reclamation Kettle Tender Name Role Phone Windy Stark MD Unavailable [phone] Alexa Roberts MD Primary Care Provider [phone] Allergies Active Allergy Reactions Criticality Noted Date [...] AM CDT): Here for annual exam. Normal live in housekeeper nanny exam today. Encouraged regular exercise and healthy [...] (02/13/2022): Added automatically from request for surgery [id number] Assessment & Plan (05/20/2022 1:47 PM CDT): Discussed ultrasound findings with patient in detail today. Lining is still appears somewhat thickened for someone postmenopausal. It is unclear whether patient had postmenopausal spotting again or if it was withdrawal from the progesterone medication since it was more than a week after completing the medication. Patient desires 2nd opinion with live in housekeeper nanny oncologist. Assessment & Plan (03/15/2022 4:13 PM CDT): Discussed with patient the potential risk of undiagnosed abnormal cells of the uterine lining or uterine cancer. Discussed the option of seeing live in housekeeper nanny Oncology for 2nd opinions and pathology was negative. 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 Not on file Not on file Last Filed Vital Signs Vital Sign Reading Time Taken Comments Blood Pressure 142/84 11/07/2022 10:15 AM CDT Pulse 73 09/30/2022 2:11 PM CLAIMS EXAMINER Temperature 35.6 ??C (96 ??F) 09/30/2022 2:11 PM CLAIMS EXAMINER Respiratory Rate 16 09/30/2022 2:11 PM CLAIMS EXAMINER Oxygen Saturation 98% 09/30/2022 2:11 PM CLAIMS EXAMINER Inhaled Oxygen Concentration - - Weight 116.3 kg (256 lb 6.4 oz) 023 10:15 AM CDT Height 154.9 cm (5' 1 ) 11/07/2022 10:1 5 AM CDT Body Mass Index 48.45 11/07/2022 10:15 AM CDT Plan of Treatment Not on file Medical Devices Implanted Type Area Orthodontic Lab Technician Device Identifier Shelf Expiration Date Model / Serial / Lot Knee Left: Knee Screw Right: Ankle Procedures Procedure Name Priority Date/Time Associated Diagnosis Comments EGFR STAT 07/05/2022 8:33 AM CLAIMS EXAMINER POCT HEMOGLOBIN A1C Routine 06/27/2022 9:39 AM CLAIMS EXAMINER DEXA AXIAL SKELETON BONE DENSITY 1 OR MORE SITES Schedule Routine, Read Routine (OP Routine) 09/14/2019 10:34 AM CLAIMS EXAMINER Asymptomatic menopausal state SCREENING MAMMOGRAM BILATERAL W CONTRERAS Schedule Routine, Read Routine (OP Routine) 09/14/2019 10:09 AM CLAIMS EXAMINER Encounter for screening mammogram for malignant neoplasm of breast from Last 3 Months or Most Recently Relevant to Health Maintenance Results * (ABNORMAL) eGFR (07/05/2022 8:33 AM CLAIMS EXAMINER) eGFR 45(L) 90 - 130 mL/min/1. 73 m2 [facility] Comment: Interpretive Data Reference Interval Normal ?>/= [...] of Race in Diagnosing Kidney Disease, JASN 2020). The CKD-EPI equation should not be used for patients with unstable renal function and has not been validated in children and those over 70. Current interpretive data was last reviewed 2021. Blood 07/05/2022 8:33 AM CLAIMS EXAMINER 07/05/2022 8:52 AM CLAIMS EXAMINER us David Jiménez MD PhD LAB BLOOD ORDERABLES Fi nal Result [facility] [place] [address] * (ABNORMAL) POCT hemoglobin A1c (06/27/2022 9:39 AM CLAIMS EXAMINER) Hgb A1C, POC 8.8(H) 4.0 - 5.6 % [facility] Est Average Gluc POC 206 mg/dL [facility] Comment: The ADA recommends reporting an estimated Average Glucose (eAG) with all Hemoglobin A1c results using the equation derived from a study of 507 normal and diabetic adults. ??Minority populations were underrepresented and children were not included. ?? (Diabetes Care 31:7382-7010, 2008). ??The eAG is not equivalent to a fasting glucose. Blood 06/27/2022 9:39 AM CLAIMS EXAMINER 06/27/2022 9:39 AM CLAIMS EXAMINER Windy Stark MD POINT OF CARE TEST ORDERABL ES Final Result Performing Organization Address City/State/[facility] md Phone Number [facility] [place] [address] * Dexa Axial Skeleton Bone Density 1 or 2 Site (09/14/2019 10:34 AM CLAIMS EXAMINER) Anatomical Region Laterality Modality Body N/A Digital Radiogra phy 09/14/2019 1:03 PM CLAIMS EXAMINER Impressions 09/14/2019 1:06 PM CLAIMS EXAMINER Low bone mass (osteopenia) which depending on the clinical circumstances may result in a moderate increased risk of fragility fracture. If followup is to be done, for technical reasons, it should be performed on this same machine. Electronically signed by: Saturnino Marion M.D. Narrative 09/14/2019 1:06 PM CLAIMS EXAMINER EXAM: ??Bone mineral density [facility]. HISTORY: ??Osteopenia postmenopausal. DXA BMD was done at [facility] on a HoloTravelCLICK CI. Precision testing at this site has [...] MD - 09/14/2019 EXAM: Bone mineral density [facility]. HISTORY: Osteopenia postmenopausal. DXA BMD was done at [facility] Breast [facility] on a Hologic Discovery CI. Precision testing at this site has [...] by: Saturnino Marion M.D. Windy Stark MD IMG DXA PROCEDURES Final Re sult * Screening Mammogram Bilateral W Contreras (09/14/2019 10:09 AM CLAIMS EXAMINER) Anatomical Region Laterality Modality Breast Bilateral Mammography Narrative 09/15/2019 7:24 AM CLAIMS EXAMINER Screening Mammogram Bilateral W Contreras: 09/14/19 Clinical: Encounter for screening mammogram for [...] for bilateral Overall Assessment: 1 - Negative Windy Stark MD IMG MAMMO PROCEDURES Final Result from Last 3 Months or Most Recently Relevant to Health Maintenance Insurance MEDICARE SOLUTIONS [facility] MEDICARE Address: [address] [place] [phone] MEDICARE SOLUTIONS [facility] MEDICARE Address: [address] [address] [place] [address] MEDICARE SOLUTIONS [facility] MEDICARE Address: [address] [address] Care Teams Metal Reclamation Kettle Tender Relationship Specialty Start Date End Date Alexa Roberts MD [address] [place] [address] PCP - General Family Medicine 02/12/22 Windy Stark MD [address] [place] [address] Consulting Physician Obstetrics and Gynecology 02/06/22
--- OUTSIDE RECORDS SUMMARY | 2024-09-13 12:50 | XMS_ITS | Clinical Summary ---
Author Organization [facility] Address [address] [place] [address] Phone Care Team Providers Care Lawn Care Technician Name Role Phone Alexa Roberts MD Primary Care Provider [phone] Allergies Active Allergy Reactions Criticality Noted Date Comments Metformin Diarrhea 12/26/2019 Penicillin G Rash Medium 07/06/2019 Medications Medication Sig Dispensed Refills Start Date End Date Status Blood Glucose Monitoring Suppl ([employer] VERIO FLEX SYSTEM) w/Device kit USE TO CHECK BLOOD SUGAR WHILE FASTING 12/03/2019 Active cimetidine (TAGAMET) 200 MG tablet TK 1 T PO QID AT MEALS AND HS 12/20/2019 Active FLUoxetine (PROzac) 20 MG capsule TK 1 C PO D 12/14/2019 Active BecovillageTOUCH VERIO test strip USE TO CHECK BLOOD SUGAR ONCE DAILY WHILE FASTING 12/03/2019 Active hydroCHLOROthiazide (HYDRODIURIL) 25 MG tablet TK 1 T PO D 12/14/2019 Active LANTUS SOLOSTAR 100 UNIT/ML injection INJECT 15 UNITS SQ ONCE D. 12/09/2019 Active Insulin Lispro, 1 Unit Dial, 100 UNIT/ML solution pen-injector INJECT 5 UNITS UNDER THE SKIN WITH MEALS 12/09/2019 Active Lancets (BecovillageTOUCH DELICA PLUS [id number]) misc USE DIRECTED TO TEST BLOOD SUGAR 12/03/2019 Active rosuvastatin (CRESTOR) 40 MG tablet TK 1 T PO D 12/14/2019 Active irbesartan (AVAPRO) 300 MG tablet Take 300 mg by mouth every night Active clindamycin (CLEOCIN) 300 MG capsule TK 2 CS ONE HOUR PRIOR TO EACH DENTAL APPT 03/20/2020 Active traMADol (ULTRAM) 50 MG tablet TK 1 T PO Q 6 H PRF PAIN 05/22/2020 Active Bydureon BCise 2 MG/0.85ML auto-injector 02/01/2021 Active B-D ULTRAFINE III SHORT PEN 31G X 8 MM misc 4 (four) times a day 04/05/2021 Active famotidine (PEPCID) 20 MG tablet Take 20 mg by mouth every night 10/03/2021 Active gabapentin (NEURONTIN) 100 MG capsule Take 100 mg by mouth 3 (three) times a day 10/11/2021 Active Symbicort 160-4.5 MCG/ACT inhaler INHALE 2 PUFFS BY MOUTH EVERY 12 HOURS NEEDED FOR ASTHMA. RINSE MOUTH AFTER USE 02/14/2022 Active Progesterone 200 MG capsule 03/13/2022 Active ferrous sulfate 325 (65 Fe) MG tablet Take by mouth daily Active Cholecalciferol 50 MCG (1999 [place]) capsule 2,000 Units Ac tive Active Problems Problem Noted Date Diagnosed Date Postmenopausal bleeding 02/13/2022 Overview (04/11/2022): Added automatically from request for surgery [id number] Last Assessment & Plan: Discussed with patient the potential risk of undiagnosed abnormal cells of the uterine lining or uterine cancer. Discussed the option of seeing check out clerk Oncology for 2nd opinions and pathology was negative. I recommend patient see check out clerk Oncology if she has any additional recurrence postmenopausal bleeding. Patient prefers not to see them at this time unless she has additional bleeding. I recommend progesterone withdrawal at the beginning of March with follow-up ultrasound to make sure the lining appears thinner. Patient agreeable to this plan. Patient to call with any problems.. Discussed risks benefits and potential side effects of the medication. Cancer cervix screening status 02/12/2022 Overview (04/11/2022): 02/06/22 - Pap - Negative, HPV negative Endometrium thickened 02/06/2022 Overview (04/11/2022): Last Assessment & Plan: Us today revealed thickened EMC. R/w pt. [...] Sent for cosign. Mass of uterine adnexa 02/06/2022 Overview (04/11/2022): 01/2022: CA125 WNL. F/U US at [facility] shows 2 benign appearing simple cysts left ovary Last Assessment & Plan: R/w pt US findings. Discussed it's limiting to see if this is an adnexa mass or bowel. Recommend checking CWW US to further evaluate adnexa. Check CA 125 to help guide us as well. Reviewed limitations of CA 125 but why we do it. Patient verbalizes understanding. Past history of procedure 02/06/2022 Overview (04/11/2022): 01/2022 US for PMB: EMC 1.2cm. R OV NL. L Adnexa ~3.4cm hypoechoic mass ovary v. Bowel. suboptimal visualization due to bowel/pt habitus. Right atrial enlargement 02/07/2021 Sleep apnea 05/10/2015 Diabetes mellitus 03/29/2015 Hypertensive disorder 03/29/2015 Gastroesophageal reflux disease 03/29/2015 Hypercholesterolemia 03/29/2015 Depressive disorder 03/29/2015 Osteopenia 03/29/2015 Morbid obesity Osteoarthritis Chronic kidney disease Diastolic heart failure Immunizations Name Administration Dates Next Due Influenza, Injectable, Quadrivalent 06/07/2019 Sars-cov-2, Unspecified 05/27/2021,12/25/2020, Family History Medical History Relation Comments Aortic aneurysm Father Coronary artery disease Father Heart disease Father Hyperlipidemia Father Ovarian cancer Mother Relation Status Comments Father Mother Social History Tobacco Use Types Packs/Day Years Used Date Smoking Tobacco: Never Smokeless Tobacco: Never Alcohol Use Standard Drinks/Week Comments Yes 0 (1 standard drink = 0.6 oz pur e alcohol) Sex and Gender Information Value Date Recorded Sex Assigned at Not on file Gender Identity Not on file Sexual Orientation Not on file Last Filed Vital Signs Vital Sign Reading Time Taken Comments Blood Pressure 132/76 04/11/2022 11:07 AM CDT Pulse - - Temperature 36.1 ??C (96.9 ??F) 04/11/2022 11:07 AM C DT Respiratory Rate 18 04/11/2022 11:07 AM CDT Oxygen Saturation - - Inhaled Oxygen Concentration - - Weight 121 kg (267 lb 4.8 oz) 04/11/2022 11:07 A M CDT Height 154.9 cm (5' 1 ) 04/11/2022 11:07 AM CDT Body Mass Index 50.51 04/11/2022 11:07 AM CDT Plan of Treatment Health Maintenance Due Date Last Done Comments Pneumococcal PPSV23/PCV13 65 + Years / High and Highest Risk (1 of 4 - PCV) 02/28/1956 Influenza Vaccine (#1) 2024 Care Teams Lawn Care Technician Relationship Specialty Start Date End Date Alexa Roberts MD [address] [place] [address] PCP - General Internal Medicine 06/27/21
--- OUTSIDE RECORDS SUMMARY | 2024-09-13 12:50 | XMS_ITS | Continuity of Care Document ---
Author Organization [facility] Address [address] [place] [address] Phone Care Team Providers Care Subject Scientific Research Name Role Phone Rah Kim MD Unavailable Unavailable Allergies, Adverse Reactions, Alerts Substance Reaction Status Criticality Penicillins Rash Active No Information Medications Medication Instructions Dosage Effective Dates (start - stop) Status Comments tramadol 50 mg tablet take 1 tablet by o ral route every 6 hours as needed 50 MG - Active Procedures Procedure Date X-ray exam ankle, minimum 3 views Office/outpatient visit,est, mod 2018 X-ray exam ankle, minimum 3 views Office/outpatient visit,est, mod 2017 Advance Directives Directive Yes / No Effective Date File Name No Information Encounters Encounter Description Practice Location Reason(s) For Visit Diagnoses Date Provider Providers Copied on Encounter Office/outpat ient visit,est, mod [facility], [address] [place] [address], [id number], [place] tel:[phone] [facility] Follow Up of right ankle (chief complaint) Presence of right artificial ankle jointPrimary osteoarthriti s, right ankle and foot Oct- 9 Judy Monreal. [address] [place] [address], [place] [address], [place], [address], [place]. tel:[phone] Referring Provider: Rah Navarrete, [address] [place] [address], [place], [address]. tel:[phone] Office/outpat ient visit,est, mod [facility], [address], [place], [place], [id number], [place] [phone] [facility] Follow Up For Ankle Replacement (chief complaint) Presence of right artificial ankle jointPrimary osteoarthriti s, right ankle and footShort Achilles tendon (acquired), right ankle Apr- 8 Judy Monreal. [address], [address], [place], [address], [place]. tel: [phone] Referring Provider: Rah Navarrete, [address], [place], [address]. tel:[phone] Family History Family Member Type Diagnosis Age At Onset Sister Problem (finding) Osteoarthritis Sister Problem (finding) Diabetes Father Problem (finding) Gout Father Problem (finding) Heart Disease Sister Problem (finding) Hypertension Mother Problem (finding) Cancer, unknown Father Problem (finding) Cancer, unknown Father Problem (finding) Osteoarthritis Payers Payer name Insurance type Covered democrat ID Authoriza tion(s) Medicare [place] Part B [id number] [address] [facility] [id number] Social History Type Description Quantity Date Captured Comments Alcohol Use Details Unknown Caffeine Use Details Unknown Tobacco Use Status No Information Smoking Status Never smoker Non-Smoking Tobacco Use Details : No Details Available : No Details Available Sex Female Chief Complaint And Reason For Visit From encounter dated '11/05/2018 13:00'. Follow Up of right ankle (chief complaint) Reason For Referral Reason For Referral No Information Plan Of Treatment Date Type Action Status Referral Ordered: X-ray exam ankle, minimum 3 views RT ankle ordered History Of Present Illness Encounter Date Complaint History Of Prese nt Illness Follow Up of right ankle Follow Up For Ankle Replacement Functional Status Date Functional Assessmen t No Information Instructions Date Instruction Additional Infor mation No Information Assessments Type Assessment Date assessment Presence of right artificial ank le joint Patient Care Teams Name Effective Dates (start - stop) Status Members No Information
[2024-09-13 12:57] LABS: Parathyroid Intact 127.2 pg/mL (14.5-75.2)
[2024-09-13 12:57] LABS: Creatinine Urine 42.8 mg/dL; Total Protein Urine Random 8 mg/dL; Ur Ttl Prot Creatinine Ratio 0.19 mg/mg (0-0.20)
[2024-09-13 13:13] LABS: Vitamin D 25 Hydroxy 59.9 ng/mL
== END 2024-09-13 12:08 | disposition home or self-care (01) ==
LOC: ANHLAB 12:09
PROVIDERS: PCP Family Medicine; Visit Provider Internal Medicine Nephrology
DX: I12.9 Hypertensive chronic kidney disease with stage 1 through stage 4 chronic kidney disease, or unspecified chronic kidney disease (principal); E11.22 Type 2 diabetes mellitus with diabetic chronic kidney disease; N18.32 Chronic kidney disease, stage 3b; N25.81 Secondary hyperparathyroidism of renal origin; E55.9 Vitamin D deficiency, unspecified
CPT/HCPCS: 36415; 82306; 82570; 83970; 84156

== ENCOUNTER 2024-09-22 12:17 | Outpatient (CLI) | payer MEDICARE, SELFPAY ==
[2024-09-22 12:55] LABS: Albumin Level 4.3 g/dL (3.5-5.1); Anion Gap 9 mmol/L (4-12); Blood Urea Nitrogen 22 mg/dL (7-17); Calcium 10.2 mg/dL (8.4-10.2); Carbon Dioxide 31 mmol/L (22-30); Chloride 100 mmol/L (98-107); Estimated Glomerular Filt Rate 45; Glucose 213 mg/dL (65-110); Potassium 4.2 mmol/L (3.4-5.0); Sodium 140 mmol/L (137-145)
--- OUTSIDE RECORDS SUMMARY | 2024-09-22 13:24 | XMS_ITS | Clinical Summary ---
Author Organization [facility] Address [address] [place] [address] Care Team Providers Care Video Photographer Name Role Phone Windy Stark MD Unavailable [phone] Alexa Roberts MD Primary Care Provider [phone] Allergies Active Allergy Reactions Criticality Noted Date [...] AM CDT): Here for annual exam. Normal machine fitter exam today. Encouraged regular exercise and healthy [...] (02/13/2022): Added automatically from request for surgery [id number] Assessment & Plan (05/20/2022 1:47 PM CDT): Discussed ultrasound findings with patient in detail today. Lining is still appears somewhat thickened for someone postmenopausal. It is unclear whether patient had postmenopausal spotting again or if it was withdrawal from the progesterone medication since it was more than a week after completing the medication. Patient desires 2nd opinion with machine fitter oncologist. Assessment & Plan (03/15/2022 4:13 PM CDT): Discussed with patient the potential risk of undiagnosed abnormal cells of the uterine lining or uterine cancer. Discussed the option of seeing machine fitter Oncology for 2nd opinions and pathology was negative. 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 [...] AM CDT Pulse 73 09/30/2022 2:11 PM HAND SPRAY OPERATOR Temperature 35.6 ??C (96 ??F) 09/30/2022 2:11 PM HAND SPRAY OPERATOR Respiratory Rate 16 09/30/2022 2:11 PM HAND SPRAY OPERATOR Oxygen Saturation 98% 09/30/2022 2:11 PM HAND SPRAY OPERATOR Inhaled Oxygen Concentration - - Weight [...] 2024 06/14/2019 Medical Devices Implanted Type Area Range Manager Device Identifier Shelf Expiration Date Model / Serial / Lot Knee Left: Knee Screw Right: Ankle Procedures Procedure Name Priority Date/Time Associated Diagnosis Comments EGFR STAT 07/05/2022 8:33 AM HAND SPRAY OPERATOR POCT HEMOGLOBIN A1C Routine 06/27/2022 9:39 AM HAND SPRAY OPERATOR DEXA AXIAL SKELETON BONE DENSITY 1 OR MORE SITES Schedule Routine, Read Routine (OP Routine) 09/14/2019 10:34 AM HAND SPRAY OPERATOR Asymptomatic menopausal state SCREENING MAMMOGRAM BILATERAL W ALFONZO Schedule Routine, Read Routine (OP Routine) 09/14/2019 10:09 AM HAND SPRAY OPERATOR Encounter for screening mammogram for malignant neoplasm of breast from Last 3 Months or Most Recently Relevant to Health Maintenance Results * (ABNORMAL) eGFR (07/05/2022 8:33 AM HAND SPRAY OPERATOR) eGFR 45(L) 90 - 130 mL/min/1. [...] last reviewed 2021. Blood 07/05/2022 8:33 AM HAND SPRAY OPERATOR 07/05/2022 8:52 AM HAND SPRAY OPERATOR us David Jiménez MD PhD LAB BLOOD ORDERABLES Fi nal Result [facility] Department [place] [address] * (ABNORMAL) POCT hemoglobin A1c (06/27/2022 9:39 AM HAND SPRAY OPERATOR) Hgb A1C, POC 8.8(H) 4.0 - 5.6 % [facility] Est Average Gluc POC 206 mg/dL [facility] Comment: The ADA recommends reporting an estimated Average Glucose (eAG) with all Hemoglobin A1c results using the equation derived from a study of 507 normal and diabetic adults. ??Minority populations were underrepresented and children were not included. ?? (Diabetes Care 31:7214-3753, 2008). ??The eAG is not equivalent to a fasting glucose. Blood 06/27/2022 9:39 AM HAND SPRAY OPERATOR 06/27/2022 9:39 AM HAND SPRAY OPERATOR Windy Stark MD POINT OF CARE TEST ORDERABL ES Final Result [facility] [address] [facility] Department [place] [address] * Dexa Axial Skeleton Bone Density 1 or 2 Site (09/14/2019 10:34 AM HAND SPRAY OPERATOR) Anatomical Region Laterality Modality Body N/A Digital Radiogra phy 09/14/2019 1:03 PM HAND SPRAY OPERATOR Impressions 09/14/2019 1:06 PM HAND SPRAY OPERATOR Low bone mass (osteopenia) which depending on the clinical circumstances may result in a moderate increased risk of fragility fracture. If followup is to be done, for technical reasons, it should be performed on this same machine. Electronically signed by: Saturnino Marion M.D. Narrative 09/14/2019 1:06 PM HAND SPRAY OPERATOR EXAM: ??Bone mineral density [facility]. HISTORY: ??Osteopenia postmenopausal. DXA BMD was done at [facility] on a [employer] CI. Precision testing at this site has [...] MD - 09/14/2019 EXAM: Bone mineral density [facility]. HISTORY: Osteopenia postmenopausal. DXA BMD was done at [facility] on a [employer] CI. Precision testing at this site has [...] Mammogram Bilateral W Alfonzo (09/14/2019 10:09 AM HAND SPRAY OPERATOR) Anatomical Region Laterality Modality Breast Bilateral Mammography Narrative 09/15/2019 7:24 AM HAND SPRAY OPERATOR Screening Mammogram Bilateral W Alfonzo: 09/14/19 [...] bilateral Overall Assessment: 1 - Negative Result [facility] Windy Stark MD IMG MAMMO PROCEDURES Final Result from Last 3 Months or Most Recently Relevant to Health Maintenance Insurance MEDICARE SOLUTIONS [facility] MEDICARE Address: [place] [id number] [facility] MEDICARE Address: [place] [id number] [place] [address] MEDICARE SOLUTIONS Care Teams Video Photographer Relationship Specialty Start Date End Date Alexa Roberts MD [address] [place], [place] [id number] PCP - General Family Medicine 02/12/22 Windy Stark MD [address] [place], [place] [id number] Consulting Physician Obstetrics and Gynecology 02/06/22
--- OUTSIDE RECORDS SUMMARY | 2024-09-22 13:24 | XMS_ITS | Referral Summary ---
Author Organization [facility] Address [address] [place] [address] Care Team Providers Care Irrigator Valve Pipe Name Role Phone Windy Stark MD Unavailable [phone] Alexa Roberts MD Primary Care Provider [phone] Allergies Active Allergy Reactions Criticality Noted Date [...] AM CDT): Here for annual exam. Normal latex spooler exam today. Encouraged regular exercise and healthy [...] (02/13/2022): Added automatically from request for surgery [id number] Assessment & Plan (05/20/2022 1:47 PM CDT): Discussed ultrasound findings with patient in detail today. Lining is still appears somewhat thickened for someone postmenopausal. It is unclear whether patient had postmenopausal spotting again or if it was withdrawal from the progesterone medication since it was more than a week after completing the medication. Patient desires 2nd opinion with latex spooler oncologist. Assessment & Plan (03/15/2022 4:13 PM CDT): Discussed with patient the potential risk of undiagnosed abnormal cells of the uterine lining or uterine cancer. Discussed the option of seeing latex spooler Oncology for 2nd opinions and pathology was negative. 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 file Last Filed Vital Signs Vital Sign Reading Time Taken Comments Blood Pressure 142/84 11/07/2022 10:15 AM CDT Pulse 73 09/30/2022 2:11 PM CARE MANAGER CNA Temperature 35.6 ??C (96 ??F) 09/30/2022 2:11 PM CARE MANAGER CNA Respiratory Rate 16 09/30/2022 2:11 PM CARE MANAGER CNA Oxygen Saturation 98% 09/30/2022 2:11 PM CARE MANAGER CNA Inhaled Oxygen Concentration - - Weight 116.3 kg (256 lb 6.4 oz) 023 10:15 AM CDT Height 154.9 cm (5' 1 ) 11/07/2022 10:1 5 AM CDT Body Mass Index 48.45 11/07/2022 10:15 AM CDT Plan of Treatment Not on file Medical Devices Implanted Type Area Aviation Safety Technician Device Identifier Shelf Expiration Date Model / Serial / Lot Knee Left: Knee Screw Right: Ankle Procedures Procedure Name Priority Date/Time Associated Diagnosis Comments EGFR STAT 07/05/2022 8:33 AM CARE MANAGER CNA POCT HEMOGLOBIN A1C Routine 06/27/2022 9:39 AM CARE MANAGER CNA DEXA AXIAL SKELETON BONE DENSITY 1 OR MORE SITES Schedule Routine, Read Routine (OP Routine) 09/14/2019 10:34 AM CARE MANAGER CNA Asymptomatic menopausal state SCREENING MAMMOGRAM BILATERAL W CONTRERAS Schedule Routine, Read Routine (OP Routine) 09/14/2019 10:09 AM CARE MANAGER CNA Encounter for screening mammogram for malignant neoplasm of breast from Last 3 Months or Most Recently Relevant to Health Maintenance Results * (ABNORMAL) eGFR (07/05/2022 8:33 AM CARE MANAGER CNA) eGFR 45(L) 90 - 130 mL/min/1. 73 m2 [facility] Comment: Interpretive Data Reference Interval Normal ?>/= [...] last reviewed 2021. Blood 07/05/2022 8:33 AM CARE MANAGER CNA 07/05/2022 8:52 AM CARE MANAGER CNA us David Jiménez MD PhD LAB BLOOD ORDERABLES Fi nal Result [facility] Department [place] [address] * (ABNORMAL) POCT hemoglobin A1c (06/27/2022 9:39 AM CARE MANAGER CNA) Hgb A1C, POC 8.8(H) 4.0 - 5.6 % [facility] Est Average Gluc POC 206 mg/dL [facility] Comment: The ADA recommends reporting an estimated Average Glucose (eAG) with all Hemoglobin A1c results using the equation derived from a study of 507 normal and diabetic adults. ??Minority populations were underrepresented and children were not included. ?? (Diabetes Care 31:2887-9114, 2008). ??The eAG is not equivalent to a fasting glucose. Blood 06/27/2022 9:39 AM CARE MANAGER CNA 06/27/2022 9:39 AM CARE MANAGER CNA Windy Stark MD POINT OF CARE TEST ORDERABL ES Final Result Performing Organization Address City/State/[facility] [place] Phone Number [facility] Department [place] [address] * Dexa Axial Skeleton Bone Density 1 or 2 Site (09/14/2019 10:34 AM CARE MANAGER CNA) Anatomical Region Laterality Modality Body N/A Digital Radiogra phy 09/14/2019 1:03 PM CARE MANAGER CNA Impressions 09/14/2019 1:06 PM CARE MANAGER CNA Low bone mass (osteopenia) which depending on the clinical circumstances may result in a moderate increased risk of fragility fracture. If followup is to be done, for technical reasons, it should be performed on this same machine. Electronically signed by: Saturnino Marion M.D. Narrative 09/14/2019 1:06 PM CARE MANAGER CNA EXAM: ??Bone mineral density [facility]. HISTORY: ??Osteopenia postmenopausal. DXA BMD was done at [facility] on a [employer] CI. Precision testing at this site has [...] MD - 09/14/2019 EXAM: Bone mineral density [facility]. HISTORY: Osteopenia postmenopausal. DXA BMD was done at [facility] Breast [facility] on a [employer] CI. Precision testing [...] Mammogram Bilateral W Contreras (09/14/2019 10:09 AM CARE MANAGER CNA) Anatomical Region Laterality Modality Breast Bilateral Mammography Narrative 09/15/2019 7:24 AM CARE MANAGER CNA Screening Mammogram Bilateral W Contreras: 09/14/19 Clinical: [...] Relevant to Health Maintenance Insurance [facility] Address: [address] [place] [phone] [facility]ICARE [facility] Address: [address] [address] [place] [address] [facility]IC[facility] Address: [address] [address] Care Teams Irrigator Valve Pipe Relationship Specialty Start Date End Date Alexa Roberts MD [address] [place] [address] PCP - General Family Medicine 02/12/22 Windy Stark MD [address] [place] [address] Consulting Physician Obstetrics and Gynecology 02/06/22
--- OUTSIDE RECORDS SUMMARY | 2024-09-22 13:25 | XMS_ITS | Clinical Summary ---
Author Organization [facility] Address [address] [place] [address] Phone Care Team Providers Care Metalsmith Name Role Phone Alexa Roberts MD Primary Care Provider [phone] Allergies Active Allergy Reactions Criticality Noted Date Comments Metformin Diarrhea 12/26/2019 Penicillin G Rash Medium 07/06/2019 Medications Medication Sig Dispensed Refills Start Date End Date Status Blood Glucose Monitoring Suppl ([employer] VERIO FLEX SYSTEM) w/Device kit USE TO CHECK BLOOD SUGAR WHILE FASTING 12/03/2019 Active cimetidine (TAGAMET) 200 MG tablet TK 1 T PO QID AT MEALS AND HS 12/20/2019 Active FLUoxetine (PROzac) 20 MG capsule TK 1 C PO D 12/14/2019 Active GIROPTICTOUCH VERIO test strip USE TO CHECK BLOOD SUGAR ONCE DAILY WHILE FASTING 12/03/2019 Active hydroCHLOROthiazide (HYDRODIURIL) 25 MG tablet TK 1 T PO D 12/14/2019 Active LANTUS SOLOSTAR 100 UNIT/ML injection INJECT 15 UNITS SQ ONCE D. 12/09/2019 Active Insulin Lispro, 1 Unit Dial, 100 UNIT/ML solution pen-injector INJECT 5 UNITS UNDER THE SKIN WITH MEALS 12/09/2019 Active Lancets (GIROPTICTOUCH DELICA PLUS [id number]) misc USE DIRECTED TO TEST BLOOD SUGAR [...] (04/11/2022): Added automatically from request for surgery [id number] Last Assessment & Plan: Discussed with patient the potential risk of undiagnosed abnormal cells of the uterine lining or uterine cancer. Discussed the option of seeing blue leather sorter Oncology for 2nd opinions and pathology was negative. I recommend patient see blue leather sorter Oncology if she has any additional recurrence [...] Comments Pneumococcal PPSV23/PCV13 65 + Years / Low and Medium Risk (1 of 4 - PCV) 02/28/2017 Influenza Vaccine (#1) 2024 Care Teams Metalsmith Relationship Specialty Start Date End Date Alexa Roberts MD [address] [place] [address] PCP - General Internal Medicine 06/27/21
--- OUTSIDE RECORDS SUMMARY | 2024-09-22 13:25 | XMS_ITS | Continuity of Care Document ---
Author Organization [facility] Address [address] [place] [address] Phone Care Team Providers Care Recycling Assistant Name Role Phone aRh Kim MD Unavailable Unavailable Allergies, Adverse Reactions, [...] Encounter Office/outpat ient visit,est, mod [facility], [address] [place] [address], [id number], [place] tel:[phone] [facility] Follow Up of right ankle (chief complaint) Presence of right artificial ankle jointPrimary osteoarthriti s, right ankle and foot Oct- 9 Judy Monreal. [address] [place] [address], [place] [address], [place], [address], [place]. tel:[phone] Referring Provider: Rah Navarrete, [address] [place] [address], [place], [address]. tel:[phone] Office/outpat ient visit,est, mod [facility], [address], [place], [place], [id number], [place] [phone] [facility] Follow Up For Ankle Replacement (chief complaint) Presence of right artificial ankle jointPrimary osteoarthriti s, right ankle and footShort Achilles tendon (acquired), right ankle Apr- 8 Judy Monreal. [address] [facility], [address], [place], [address], [place]. tel: [phone] Referring Provider: Rah Navarrete, [address] [facility] [address], [place], [address]. tel:[phone] Family History Family Member Type Diagnosis Age At Onset Sister Problem (finding) Osteoarthritis Sister Problem (finding) Diabetes Father Problem (finding) Gout Father Problem (finding) Heart Disease Sister Problem (finding) Hypertension Mother Problem (finding) Cancer, unknown Father Problem (finding) Cancer, unknown Father Problem (finding) Osteoarthritis Payers Payer name Insurance type Covered democrat ID Authoriza tion(s) [place] Part B [id number] [address] [facility] [id number] Social History Type Description Quantity Date Captured [...]
== END 2024-09-22 12:18 | disposition home or self-care (01) ==
LOC: ANHLAB 12:18
PROVIDERS: PCP Family Medicine; Visit Provider Internal Medicine Nephrology
DX: I12.9 Hypertensive chronic kidney disease with stage 1 through stage 4 chronic kidney disease, or unspecified chronic kidney disease (principal); N18.32 Chronic kidney disease, stage 3b; N25.81 Secondary hyperparathyroidism of renal origin; E55.9 Vitamin D deficiency, unspecified
CPT/HCPCS: 36415; 80069

== ENCOUNTER 2025-01-17 08:43 | Outpatient (CLI) | payer MEDICARE, SELFPAY ==
--- OUTSIDE RECORDS SUMMARY | 2025-01-17 08:55 | XMS_ITS | Clinical Summary ---
Author Organization [facility] Address [address] [place] [address] Phone Care Team Providers Care Corn Shredder Name Role Phone Alexa Roberts MD Primary Care Provider [phone] Allergies Active Allergy Reactions Criticality Noted Date Comments Metformin Diarrhea 12/26/2019 Penicillin G Rash Medium 07/06/2019 Medications Blood Glucose Monitoring Suppl (Pinoccio VERIO FLEX SYSTEM) w/Device kit USE TO CHECK BLOOD SUGAR WHILE FASTING 12/03/2019 Active cimetidine (TAGAMET) 200 MG tablet TK 1 T PO QID AT MEALS AND HS 12/20/2019 Active FLUoxetine (PROzac) 20 MG capsule TK 1 C PO D 12/14/2019 Active ONETOUCH VERIO test strip USE TO CHECK BLOOD SUGAR ONCE DAILY WHILE FASTING 12/03/2019 Active hydroCHLOROthia zide (HYDRODIURIL) 25 MG tablet TK 1 T PO D 12/14/2019 Acti ve LANTUS SOLOSTAR 100 UNIT/ML injection INJECT 15 UNITS SQ ONCE D. 12/09/2019 Active Insulin Lispro, 1 Unit Dial, 100 UNIT/ML solution pen-injector INJECT 5 UNITS UNDER THE SKIN WITH MEALS 12/09/2019 Active Lancets (VaultLogixTOUCH DELICA PLUS [id number]) misc USE DIRECTED TO TEST BLOOD SUGAR [...] Active Bydureon BCise 2 MG/0.85ML auto-injector 02/01/2021 Activ e B-D ULTRAFINE III SHORT PEN 31G X [...] 02/14/2022 Active Progesterone 200 MG capsule 03/13/2022 Acti ve ferrous sulfate 325 (65 Fe) MG tablet Take by mouth daily Active Cholecalciferol 50 MCG (1999 UT) capsule 2,000 Units Active Active Problems Problem Noted Date Diagnosed Date Postmenopausal bleeding 02/13/2022 Overview (04/11/2022): Added automatically from request for surgery [id number] Last Assessment & Plan: Discussed with patient the potential risk of undiagnosed abnormal cells of the uterine lining or uterine cancer. Discussed the option of seeing hide washer Oncology for 2nd opinions and pathology was negative. I recommend patient see hide washer Oncology if she has any additional recurrence [...] (04/11/2022): 01/2022: CA125 WNL. F/U US at [facility] shows 2 benign appearing simple cysts left [...] Chronic kidney disease Diastolic heart failure Immunizations Immunization Administration Dates Next Due Influenza, Injectable, Quadrivalent [...] drink = 0.6 oz pur e alcohol) Comments Unknown Sex and Gender Information Value Date Recorded Sex Assigned at Not on file Legal Sex Female 11:07 AM MDT Gender Identity Not on file Sexual Orientation Not on file Last Filed Vital Signs Vital Sign Reading Time Taken Comments Blood Pressure 132/76 04/11/2022 11:07 AM CDT Pulse - - Temperature 36.1 C (96.9 F) 04/11/2022 11:07 AM CDT Respiratory Rate 18 04/11/2022 11:07 AM CDT Oxygen Saturation - - Inhaled Oxygen Concentration - - Weight 121 kg (267 lb 4.8 oz) 04/11/2022 11:07 A M CDT Height 154.9 cm (5' 1) 04/11/2022 11:07 AM CDT Body Mass Index 50.51 04/11/2022 11:07 AM CDT Plan of Treatment Health Maintenance Due Date Last Done Comments Pneumococcal PPSV23/PCV13 65 + Years / Low and Medium Risk (1 of 4 - PCV) 02/28/2002 Influenza Vaccine (Season Ended) [address] [facility] Care Teams Corn Shredder Relationship Specialty Start Date End Date Alexa Roberts MD [address] [place] [address] PCP - General Internal Medicine 06/27/21
--- OUTSIDE RECORDS SUMMARY | 2025-01-17 08:55 | XMS_ITS | Referral Summary ---
Author Organization [facility] Address [address] [place] [address] Care Team Providers Care Transportation Maintenance Specialist Name Role Phone Windy Stark MD Unavailable [phone] Alexa Roberts MD Primary Care Provider [phone] Allergies Active Allergy Reactions Criticality Noted Date [...] AM CDT): Here for annual exam. Normal biological science technician exam today. Encouraged regular exercise and healthy [...] (02/13/2022): Added automatically from request for surgery [id number] Assessment & Plan (05/20/2022 1:47 PM CDT): Discussed ultrasound findings with patient in detail today. Lining is still appears somewhat thickened for someone postmenopausal. It is unclear whether patient had postmenopausal spotting again or if it was withdrawal from the progesterone medication since it was more than a week after completing the medication. Patient desires 2nd opinion with biological science technician oncologist. Assessment & Plan (03/15/2022 4:13 PM CDT): Discussed with patient the potential risk of undiagnosed abnormal cells of the uterine lining or uterine cancer. Discussed the option of seeing biological science technician Oncology for 2nd opinions and pathology was negative. I recommend patient see biological science technician Oncology if she has any additional recurrence [...] we do it. Patient verbalizes understanding. 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 on file Not on file Last Filed Vital Signs Vital Sign Reading Time Taken Comments Blood Pressure 142/84 11/07/2022 10:15 AM CDT Pulse 73 09/30/2022 2:11 PM CLINICAL RESEARCH ASSISTANT Temperature 35.6 C (96 F) 09/30/2022 2:11 PM CLINICAL RESEARCH ASSISTANT Respiratory Rate 16 09/30/2022 2:11 PM CLINICAL RESEARCH ASSISTANT Oxygen Saturation 98% 09/30/2022 2:11 PM CLINICAL RESEARCH ASSISTANT Inhaled Oxygen Concentration - - Weight 116.3 kg (256 lb 6.4 oz) 023 10:15 AM CDT Height 154.9 cm (5' 1) 11/07/2022 10:1 5 AM CDT Body Mass Index 48.45 11/07/2022 10:15 AM CDT Plan of Treatment Not on file Medical Devices Implanted Type Area Workers Compensation Claims Examiner Device Identifier Shelf Expiration Date Model / Serial / Lot Knee Left: Knee Screw Right: Ankle Procedures Procedure Name Priority Date/Time Associated Diagnosis Comments EGFR STAT 07/05/2022 8:33 AM CLINICAL RESEARCH ASSISTANT POCT HEMOGLOBIN A1C Routine 06/27/2022 9:39 AM CLINICAL RESEARCH ASSISTANT DEXA AXIAL SKELETON BONE DENSITY 1 OR MORE SITES Schedule Routine, Read Routine (OP Routine) 09/14/2019 10:34 AM CLINICAL RESEARCH ASSISTANT Asymptomatic menopausal state SCREENING MAMMOGRAM BILATERAL W CONTRERAS Schedule Routine, Read Routine (OP Routine) 09/14/2019 10:09 AM CLINICAL RESEARCH ASSISTANT Encounter for screening mammogram for malignant neoplasm of breast from Last 3 Months or Most Recently Relevant to Health Maintenance Results * (ABNORMAL) eGFR (07/05/2022 8:33 AM CLINICAL RESEARCH ASSISTANT) eGFR 45(L) 90 - 130 mL/min/1. 73 m2 [facility] Comment: Interpretive Data Reference Interval Normal >/= 90 mL/min/1.73m2 Mildly decreased* 60 - 89 mL/min/1.73m2 Mildly to moderately decreased 45 - 59 mL/min/1.73m2 Moderately to severely decreased 30 - 44 mL/min/1.73m2 Severely decreased 15 - 29 mL/min/1.73m2 Kidney Failure < 15 mL/min/1.73m2 *Relative to young adult level Estimated glomerular [...] last reviewed 2021. Blood 07/05/2022 8:33 AM CLINICAL RESEARCH ASSISTANT 07/05/2022 8:52 AM CLINICAL RESEARCH ASSISTANT us David Jiménez MD PhD LAB BLOOD ORDERABLES Fi nal Result Performing Organization Address City/State/[facility] Co de Phone Number [facility] One [facility] Department [place] [address] * (ABNORMAL) POCT hemoglobin A1c (06/27/2022 9:39 AM CLINICAL RESEARCH ASSISTANT) Hgb A1C, POC 8.8(H) 4.0 - 5.6 % [facility] Est Average Gluc POC 206 mg/dL [facility] Comment: The ADA recommends reporting an estimated Average Glucose (eAG) with all Hemoglobin A1c results using the equation derived from a study of 507 normal and diabetic adults. Minority populations were underrepresented and children were not included. (Diabetes Care 31:5376-0272, 2008). The eAG is not equivalent to a fasting glucose. Blood 06/27/2022 9:39 AM CLINICAL RESEARCH ASSISTANT 06/27/2022 9:39 AM CLINICAL RESEARCH ASSISTANT Windy Stark MD POINT OF CARE TEST ORDERABL ES Final Result [facility] Department [place] [address] * Dexa Axial Skeleton Bone Density 1 or 2 Site (09/14/2019 10:34 AM CLINICAL RESEARCH ASSISTANT) Anatomical Region Laterality Modality Body N/A Digital Radiogra phy 09/14/2019 1:03 PM CLINICAL RESEARCH ASSISTANT Impressions 09/14/2019 1:06 PM CLINICAL RESEARCH ASSISTANT Low bone mass (osteopenia) which depending on the clinical circumstances may result in a moderate increased risk of fragility fracture. If followup is to be done, for technical reasons, it should be performed on this same machine. Electronically signed by: Saturnino Marion M.D. Narrative 09/14/2019 1:06 PM CLINICAL RESEARCH ASSISTANT EXAM: Bone mineral density [facility]. HISTORY: Osteopenia postmenopausal. DXA BMD was done at [facility] on a [employer] Discovery CI. Precision testing at this site [...] MD - 09/14/2019 EXAM: Bone mineral density [facility]. HISTORY: Osteopenia postmenopausal. DXA BMD was done at [facility] on a [employer] Discovery CI. Precision testing at this site [...] by: Saturnino Marion M.D. Windy Stark MD [facility] DXA PROCEDURES Final Re sult * Screening Mammogram Bilateral W Contreras (09/14/2019 10:09 AM CLINICAL RESEARCH ASSISTANT) Anatomical Region Laterality Modality Breast Bilateral Mammography Narrative 09/15/2019 7:24 AM CLINICAL RESEARCH ASSISTANT Screening Mammogram Bilateral W Contreras: 09/14/19 Clinical: Encounter for screening mammogram for malignant neoplasm of breast. Prior Study Comparisons: Comparison was made to the prior available relevant studies at the time of interpretation. Findings: Bilateral No significant masses, malignant type calcifications, skin thickening, nipple retraction, or significant lymphadenopathy is noted in either breast. The CAD review showed no significant findings. The breasts have scattered areas of fibroglandular density. The patient will be notified of results by letter. Impression: BI-RADS ATLAS category (overall): 1 Negative There is no mammographic evidence of malignancy. Routine Screening Mammogram in 1 Yr is recommended for bilateral Overall Assessment: 1 - Negative us Windy Stark MD [facility] MAMMO PROCEDURES Final Result from Last 3 Months or Most Recently Relevant to Health Maintenance Insurance [facility] MEDICARE Address: [address] [address] [place] [id number] [facility] MEDICARE Address: [address] [address] [place] [id number] UHC MEDICARE ADVANTAGE [facility] MEDICARE Address: [address] [address] [place] [id number] Care Teams Transportation Maintenance Specialist Relationship Specialty Start Date End Date Alexa Roberts MD [address] [place] [address] PCP - General Family Medicine 02/12/22 Windy Stark MD [address] [place] [address] Consulting Physician Obstetrics and Gynecology 02/06/22
--- OUTSIDE RECORDS SUMMARY | 2025-01-17 08:55 | XMS_ITS | Continuity of Care Document ---
Author Organization [facility] Address [address] [place] [address] Phone Care Team Providers Care Designated Broker Name Role Phone Rah Kim MD Unavailable [...] Encounter Office/outpat ient visit,est, mod [facility], [address] [place] [address], [id number], [place] tel:[phone] [facility] Follow Up of right ankle (chief complaint) Presence of right artificial ankle jointPrimary osteoarthriti s, right ankle and foot Oct- 9 Judy Monreal. [address] [place] [address], [place] [address], [place], [address], [place]. tel:[phone] Referring Provider: Rah Navarrete, [address] [place] [address], [place], [address]. tel:[phone] Office/outpat ient visit,est, mod [facility], [address], [place], [place], [id number], [place] [phone] [facility] Follow Up For Ankle Replacement (chief complaint) Presence of right artificial ankle jointPrimary osteoarthriti s, right ankle and footShort Achilles tendon (acquired), right ankle Apr- 8 Judy Monreal. [address] [facility], [address], [place], [address], [place]. tel: [phone] Referring Provider: Rah Navarrete, [address] [facility] [address], [place], [address]. tel:[phone] Family History Family Member Type Diagnosis Age At Onset Sister Problem (finding) Osteoarthritis Sister Problem (finding) Diabetes Father Problem (finding) Gout Father Problem (finding) Heart Disease Sister Problem (finding) Hypertension Mother Problem (finding) Cancer, unknown Father Problem (finding) Cancer, unknown Father Problem (finding) Osteoarthritis Payers Payer name Insurance type Covered constitution party ID Authoriza tion(s) [place] W[place] Part B [id number] [address] [facility] [id number] Social History Type Description Quantity Date Captured [...]
--- OUTSIDE RECORDS SUMMARY | 2025-01-17 08:55 | XMS_ITS | Clinical Summary ---
Author Organization [facility] Address [address] [place] [address] Care Team Providers Care Life Insurance Actuary Name Role Phone Windy Stark MD Unavailable [phone] Alexa Roberts MD Primary Care Provider [phone] Allergies Active Allergy Reactions Criticality Noted Date [...] AM CDT): Here for annual exam. Normal directory operator exam today. Encouraged regular exercise and healthy [...] (02/13/2022): Added automatically from request for surgery [id number] Assessment & Plan (05/20/2022 1:47 PM CDT): Discussed ultrasound findings with patient in detail today. Lining is still appears somewhat thickened for someone postmenopausal. It is unclear whether patient had postmenopausal spotting again or if it was withdrawal from the progesterone medication since it was more than a week after completing the medication. Patient desires 2nd opinion with directory operator oncologist. Assessment & Plan (03/15/2022 4:13 PM CDT): Discussed with patient the potential risk of undiagnosed abnormal cells of the uterine lining or uterine cancer. Discussed the option of seeing directory operator Oncology for 2nd opinions and pathology was negative. I recommend patient see directory operator Oncology if she has any additional recurrence [...] (02/12/2022): 01/2022: CA125 WNL. 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 Not on [...] AM CDT Pulse 73 09/30/2022 2:11 PM CHILD WELFARE ASSISTANT Temperature 35.6 C (96 F) 09/30/2022 2:11 PM CHILD WELFARE ASSISTANT Respiratory Rate 16 09/30/2022 2:11 PM CHILD WELFARE ASSISTANT Oxygen Saturation 98% 09/30/2022 2:11 PM CHILD WELFARE ASSISTANT Inhaled Oxygen Concentration - - Weight [...] Well Visit 65+ 11/08/2023 11/07/2022 Influenza Vaccine (Season Ended) 2025 06/14/20 19 Medical Devices Implanted Type Area Tariff Compiling Clerk Device Identifier Shelf Expiration Date Model / Serial / Lot Knee Left: Knee Screw Right: Ankle Procedures Procedure Name Priority Date/Time Associated Diagnosis Comments EGFR STAT 07/05/2022 8:33 AM CHILD WELFARE ASSISTANT POCT HEMOGLOBIN A1C Routine 06/27/2022 9:39 AM CHILD WELFARE ASSISTANT DEXA AXIAL SKELETON BONE DENSITY 1 OR MORE SITES Schedule Routine, Read Routine (OP Routine) 09/14/2019 10:34 AM CHILD WELFARE ASSISTANT Asymptomatic menopausal state SCREENING MAMMOGRAM BILATERAL W ALFONZO Schedule Routine, Read Routine (OP Routine) 09/14/2019 10:09 AM CHILD WELFARE ASSISTANT Encounter for screening mammogram for malignant neoplasm of breast from Last 3 Months or Most Recently Relevant to Health Maintenance Results * (ABNORMAL) eGFR (07/05/2022 8:33 AM CHILD WELFARE ASSISTANT) eGFR 45(L) 90 - 130 mL/min/1. 73 m2 [facility] Comment: Interpretive Data Reference Interval Normal [...] last reviewed 2021. Blood 07/05/2022 8:33 AM CHILD WELFARE ASSISTANT 07/05/2022 8:52 AM CHILD WELFARE ASSISTANT us David Jiménez MD PhD LAB BLOOD ORDERABLES Fi nal Result [facility] One [facility] [place] [address] * (ABNORMAL) POCT hemoglobin A1c (06/27/2022 9:39 AM CHILD WELFARE ASSISTANT) Hgb A1C, POC 8.8(H) 4.0 - 5.6 % [facility] Est Average Gluc POC 206 mg/dL [facility] Comment: The ADA recommends reporting an estimated Average Glucose (eAG) with all Hemoglobin A1c results using the equation derived from a study of 507 normal and diabetic adults. Minority populations were underrepresented and children were not included. (Diabetes Care 31:9122-1846, 2008). The eAG is not equivalent to a fasting glucose. Blood 06/27/2022 9:39 AM CHILD WELFARE ASSISTANT 06/27/2022 9:39 AM CHILD WELFARE ASSISTANT us Windy Stark MD POINT OF CARE TEST ORDERABL ES Final Result Performing Organization Address City/State/ZIP Co nm Phone Number [facility] Department [place] [address] * Dexa Axial Skeleton Bone Density 1 or 2 Site (09/14/2019 10:34 AM CHILD WELFARE ASSISTANT) Anatomical Region Laterality Modality Body N/A Digital Radiogra phy 09/14/2019 1:03 PM CHILD WELFARE ASSISTANT Impressions 09/14/2019 1:06 PM CHILD WELFARE ASSISTANT Low bone mass (osteopenia) which depending on the clinical circumstances may result in a moderate increased risk of fragility fracture. If followup is to be done, for technical reasons, it should be performed on this same machine. Electronically signed by: Saturnino Marion M.D. Narrative 09/14/2019 1:06 PM CHILD WELFARE ASSISTANT EXAM: Bone mineral density [facility]. HISTORY: Osteopenia postmenopausal. DXA BMD was done at [facility] on a Hol[employer] CI. Precision testing at this site has [...] MD - 09/14/2019 EXAM: Bone mineral density [facility]. HISTORY: Osteopenia postmenopausal. DXA BMD was done at [facility] Breast [facility] on a [employer] Discovery CI. [...] machine. Electronically signed by: Saturnino Marion M.D. us Windy Stark MD IMG DXA PROCEDURES Final Re sult * Screening Mammogram Bilateral W Alfonzo (09/14/2019 10:09 AM CHILD WELFARE ASSISTANT) Anatomical Region Laterality Modality Breast Bilateral Mammography Narrative 09/15/2019 7:24 AM CHILD WELFARE ASSISTANT Screening Mammogram Bilateral W Alfonzo: 09/14/19 Clinical: [...] 1 - Negative us Windy Stark MD IMG MAMMO PROCEDURES Final Result from Last 3 Months or Most Recently Relevant to Health Maintenance Insurance [facility]ICARE [facility] Address: [place] [id number] UHC MEDICARE ADVANTAGE [facility] Address: [address] [place], [place] [phone] UHC MEDICARE ADVANTAGE Care Teams Life Insurance Actuary Relationship Specialty Start Date End Date Alexa Roberts MD [address] [place] [address] PCP - General Family Medicine 02/12/22 Windy Stark MD [address] [place] [address] Consulting Physician Obstetrics and Gynecology 02/06/22
[2025-01-17 09:52] LABS: Alanine Aminotransferase 19 U/L (6-35); Albumin Level 4.2 g/dL (3.5-5.1); Alkaline Phosphatase 101 U/L (38-126); Anion Gap 7 mmol/L (4-12); Aspartate Amino Transferase 26 U/L (14-36); Bilirubin,Total 0.4 mg/dL (0.2-1.3); Blood Urea Nitrogen 19 mg/dL (7-17); Calcium 10.1 mg/dL (8.4-10.2); Carbon Dioxide 29 mmol/L (22-30); Chloride 105 mmol/L (98-107); Cholesterol 166 mg/dL (0-200); Estimated Glomerular Filt Rate 47; Glucose 167 mg/dL (65-110); HDL Direct 55 mg/dL; Potassium 4.3 mmol/L (3.4-5.0); Sodium 141 mmol/L (137-145); Triglycerides 227 mg/dL (<150)
[2025-01-17 09:55] LABS: Parathyroid Intact 79.6 pg/mL (14.5-75.2)
[2025-01-17 10:04] LABS: Creatinine Urine 114.6 mg/dL; LDL Cholesterol Direct 59 mg/dL
[2025-01-17 10:05] LABS: Creatinine Urine 113.1 mg/dL; Total Protein Urine Random 30 mg/dL; Ur Ttl Prot Creatinine Ratio 0.27 mg/mg (0-0.20)
[2025-01-17 10:10] LABS: Microalbumin Urine Random 37.8 mg/L (0-16.7)
[2025-01-17 10:30] LABS: Free T4 Free Thyroxine 0.79 ng/dL (0.78-2.19); Vitamin D 25 Hydroxy 28.7 ng/mL
== END 2025-01-17 08:44 | disposition home or self-care (01) ==
PROVIDERS: PCP Family Medicine; Referring Provider Internal Medicine Nephrology; Visit Provider Nurse Practitioner Family
DX: N18.32 Chronic kidney disease, stage 3b (principal); I12.9 Hypertensive chronic kidney disease with stage 1 through stage 4 chronic kidney disease, or unspecified chronic kidney disease; E11.22 Type 2 diabetes mellitus with diabetic chronic kidney disease; Z79.4 Long term (current) use of insulin; E11.65 Type 2 diabetes mellitus with hyperglycemia; E78.5 Hyperlipidemia, unspecified; E55.9 Vitamin D deficiency, unspecified; R79.89 Other specified abnormal findings of blood chemistry; N25.81 Secondary hyperparathyroidism of renal origin
CPT/HCPCS: 36415; 80053; 80061; 82043; 82306; 82570; 82607; 83970; 84100; 84156; 84439; 84443

== ENCOUNTER 2025-02-24 09:47 | Outpatient (CLI) | payer MEDICARE, SELFPAY ==
--- OUTSIDE RECORDS SUMMARY | 2025-02-24 09:51 | XMS_ITS | Clinical Summary ---
Author Organization [facility] Address [address] [place] [address] Phone Care Team Providers Care Hatchery Manager Name Role Phone Alexa Roberts MD Primary Care Provider [phone] Allergies Active Allergy Reactions Criticality Noted Date Comments Metformin Diarrhea 12/26/2019 Penicillin G Rash Medium 07/06/2019 Medications Blood Glucose Monitoring Suppl ([employer] VERIO FLEX SYSTEM) w/Device kit USE TO [...] THE SKIN WITH MEALS 12/09/2019 Active Lancets (Health eVillagesTOUCH DELICA PLUS [id number]) misc USE DIRECTED TO TEST BLOOD SUGAR [...] (04/11/2022): Added automatically from request for surgery [id number] Last Assessment & Plan: Discussed with patient the potential risk of undiagnosed abnormal cells of the uterine lining or uterine cancer. Discussed the option of seeing executive marketing assistant Oncology for 2nd opinions and pathology was negative. I recommend patient see executive marketing assistant Oncology if she has any additional recurrence [...] (04/11/2022): 01/2022: CA125 WNL. F/U US at [facility] shows 2 benign appearing simple cysts left [...] / Low and Medium Risk (1 of 2 - PCV) 02/28/2002 Influenza Vaccine (#1) 2025 Insurance MEDICARE [facility] Care Teams Hatchery Manager Relationship Specialty Start Date End Date Alexa Roberts MD [address] [place] [address] PCP - General Internal Medicine 06/27/21
--- OUTSIDE RECORDS SUMMARY | 2025-02-24 09:51 | XMS_ITS | Clinical Summary ---
Author Organization [facility] Address [address] [place] [address] Care Team Providers Care Director Of Bands Name Role Phone Windy Stark MD Unavailable [phone] Alexa Roberts MD Primary Care Provider [phone] Allergies Active Allergy Reactions Criticality Noted Date [...] AM CDT): Here for annual exam. Normal medical records director exam today. Encouraged regular exercise and healthy [...] (02/13/2022): Added automatically from request for surgery [id number] Assessment & Plan (05/20/2022 1:47 PM CDT): Discussed ultrasound findings with patient in detail today. Lining is still appears somewhat thickened for someone postmenopausal. It is unclear whether patient had postmenopausal spotting again or if it was withdrawal from the progesterone medication since it was more than a week after completing the medication. Patient desires 2nd opinion with medical records director oncologist. Assessment & Plan (03/15/2022 4:13 PM CDT): Discussed with patient the potential risk of undiagnosed abnormal cells of the uterine lining or uterine cancer. Discussed the option of seeing medical records director Oncology for 2nd opinions and pathology was negative. 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 Not on file Not on [...] AM CDT Pulse 73 09/30/2022 2:11 PM HEADING MATCHER AND ASSEMBLER Temperature 35.6 C (96 F) 09/30/2022 2:11 PM HEADING MATCHER AND ASSEMBLER Respiratory Rate 16 09/30/2022 2:11 PM HEADING MATCHER AND ASSEMBLER Oxygen Saturation 98% 09/30/2022 2:11 PM HEADING MATCHER AND ASSEMBLER Inhaled Oxygen Concentration - - Weight 116.3 [...] 06/14/20 19 Medical Devices Implanted Type Area Fondant Puff Maker Device Identifier Shelf Expiration Date Model / Serial / Lot Knee Left: Knee Screw Right: Ankle Procedures Procedure Name Priority Date/Time Associated Diagnosis Comments EGFR STAT 07/05/2022 8:33 AM HEADING MATCHER AND ASSEMBLER POCT HEMOGLOBIN A1C Routine 06/27/2022 9:39 AM HEADING MATCHER AND ASSEMBLER DEXA AXIAL SKELETON BONE DENSITY 1 OR MORE SITES Schedule Routine, Read Routine (OP Routine) 09/14/2019 10:34 AM HEADING MATCHER AND ASSEMBLER Asymptomatic menopausal state SCREENING MAMMOGRAM BILATERAL W ALFONZO Schedule Routine, Read Routine (OP Routine) 09/14/2019 10:09 AM HEADING MATCHER AND ASSEMBLER Encounter for screening mammogram for malignant neoplasm of breast from Last 3 Months or Most Recently Relevant to Health Maintenance Results * (ABNORMAL) eGFR (07/05/2022 8:33 AM HEADING MATCHER AND ASSEMBLER) eGFR 45(L) 90 - 130 mL/min/1. 73 m2 [facility] Comment: Interpretive Data Reference Interval Normal [...] last reviewed 2021. Blood 07/05/2022 8:33 AM HEADING MATCHER AND ASSEMBLER 07/05/2022 8:52 AM HEADING MATCHER AND ASSEMBLER us David Jiménez MD PhD LAB BLOOD ORDERABLES Fi nal Result [facility] Department [place] [address] * (ABNORMAL) POCT hemoglobin A1c (06/27/2022 9:39 AM HEADING MATCHER AND ASSEMBLER) Hgb A1C, POC 8.8(H) 4.0 - 5.6 % [facility] Est Average Gluc POC 206 mg/dL [facility] Comment: The ADA recommends reporting an estimated Average Glucose (eAG) with all Hemoglobin A1c results using the equation derived from a study of 507 normal and diabetic adults. Minority populations were underrepresented and children were not included. (Diabetes Care 31:5641-6013, 2008). The eAG is not equivalent to a fasting glucose. Blood 06/27/2022 9:39 AM HEADING MATCHER AND ASSEMBLER 06/27/2022 9:39 AM HEADING MATCHER AND ASSEMBLER us Windy Stark MD POINT OF CARE TEST ORDERABL ES Final Result Performing Organization Address City/State/ZIP Co pa Phone Number [facility] Department [place] [address] * Dexa Axial Skeleton Bone Density 1 or 2 Site (09/14/2019 10:34 AM HEADING MATCHER AND ASSEMBLER) Anatomical Region Laterality Modality Body N/A Digital Radiogra phy 09/14/2019 1:03 PM HEADING MATCHER AND ASSEMBLER Impressions 09/14/2019 1:06 PM HEADING MATCHER AND ASSEMBLER Low bone mass (osteopenia) which depending on the clinical circumstances may result in a moderate increased risk of fragility fracture. If followup is to be done, for technical reasons, it should be performed on this same machine. Electronically signed by: Saturnino Marion M.D. Narrative 09/14/2019 1:06 PM HEADING MATCHER AND ASSEMBLER EXAM: Bone mineral density [facility]. HISTORY: Osteopenia postmenopausal. DXA BMD was done at [facility] on a HoloOANDA CI. Precision testing at this site has [...] MD - 09/14/2019 EXAM: Bone mineral density [facility]. HISTORY: Osteopenia postmenopausal. DXA BMD was done at [facility] Breast [facility] on a Hologic Discovery [...] Mammogram Bilateral W Alfonzo (09/14/2019 10:09 AM HEADING MATCHER AND ASSEMBLER) Anatomical Region Laterality Modality Breast Bilateral Mammography Narrative 09/15/2019 7:24 AM HEADING MATCHER AND ASSEMBLER Screening Mammogram Bilateral W Alfonzo: 09/14/19 Clinical: [...] Most Recently Relevant to Health Maintenance Insurance [facility] MEDICARE ADVANTAGE [facility] Address: [place] [id number] UHC MEDICARE ADVANTAGE [facility] Address: [address] [place], [place] [id number] [place] [address] Care Teams Director Of Bands Relationship Specialty Start Date End Date Alexa Roberts MD [address] [place] [address] PCP - General Family Medicine 02/12/22 Wnidy Stark MD [address] [place] [address] Consulting Physician Obstetrics and Gynecology 02/06/22
--- OUTSIDE RECORDS SUMMARY | 2025-02-24 09:51 | XMS_ITS | Referral Summary ---
Author Organization [facility] Address [address] [place] [address] Care Team Providers Care Car Cooper Name Role Phone Windy Stark MD Unavailable [phone] Alexa Roberts MD Primary Care Provider [phone] Allergies Active Allergy Reactions Criticality Noted Date [...] AM CDT): Here for annual exam. 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 Encouraged regular exercise and healthy [...] (02/13/2022): Added automatically from request for surgery [id number] Assessment & Plan (05/20/2022 1:47 PM CDT): Discussed ultrasound findings with patient in detail today. Lining is still appears somewhat thickened for someone postmenopausal. It is unclear whether patient had postmenopausal spotting again or if it was withdrawal from the progesterone medication since it was more than a week after completing the medication. Patient desires 2nd opinion with oil truck driver oncologist. Assessment & Plan (03/15/2022 4:13 PM CDT): Discussed with patient the potential risk of undiagnosed abnormal cells of the uterine lining or uterine cancer. Discussed the option of seeing oil truck driver Oncology for 2nd opinions and pathology was negative. 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 Not on file Last Filed Vital Signs Vital Sign Reading Time Taken Comments Blood Pressure 142/84 11/07/2022 10:15 AM CDT Pulse 73 09/30/2022 2:11 PM SAFETY AND SECURITY MANAGER Temperature 35.6 C (96 F) 09/30/2022 2:11 PM SAFETY AND SECURITY MANAGER Respiratory Rate 16 09/30/2022 2:11 PM SAFETY AND SECURITY MANAGER Oxygen Saturation 98% 09/30/2022 2:11 PM SAFETY AND SECURITY MANAGER Inhaled Oxygen Concentration - - Weight 116.3 kg (256 lb 6.4 oz) 023 10:15 AM CDT Height 154.9 cm (5' 1) 11/07/2022 10:1 5 AM CDT Body Mass Index 48.45 11/07/2022 10:15 AM CDT Plan of Treatment Not on file Medical Devices Implanted Type Area Insulation Board Coater Operator Device Identifier Shelf Expiration Date Model / Serial / Lot Knee Left: Knee Screw Right: Ankle Procedures Procedure Name Priority Date/Time Associated Diagnosis Comments EGFR STAT 07/05/2022 8:33 AM SAFETY AND SECURITY MANAGER POCT HEMOGLOBIN A1C Routine 06/27/2022 9:39 AM SAFETY AND SECURITY MANAGER DEXA AXIAL SKELETON BONE DENSITY 1 OR MORE SITES Schedule Routine, Read Routine (OP Routine) 09/14/2019 10:34 AM SAFETY AND SECURITY MANAGER Asymptomatic menopausal state SCREENING MAMMOGRAM BILATERAL W CONTRERAS Schedule Routine, Read Routine (OP Routine) 09/14/2019 10:09 AM SAFETY AND SECURITY MANAGER Encounter for screening mammogram for malignant neoplasm of breast from Last 3 Months or Most Recently Relevant to Health Maintenance Results * (ABNORMAL) eGFR (07/05/2022 8:33 AM SAFETY AND SECURITY MANAGER) eGFR 45(L) 90 - 130 mL/min/1. 73 m2 [facility] Comment: Interpretive Data Reference Interval Normal >/= [...] last reviewed 2021. Blood 07/05/2022 8:33 AM SAFETY AND SECURITY MANAGER 07/05/2022 8:52 AM SAFETY AND SECURITY MANAGER us David Jiménez MD PhD LAB BLOOD ORDERABLES Fi nal Result Performing Organization Address City/State/[facility] Co de Phone Number [facility] Department [place] [address] * (ABNORMAL) POCT hemoglobin A1c (06/27/2022 9:39 AM SAFETY AND SECURITY MANAGER) Hgb A1C, POC 8.8(H) 4.0 - 5.6 % [facility] Est Average Gluc POC 206 mg/dL [facility] Comment: The ADA recommends reporting an estimated Average Glucose (eAG) with all Hemoglobin A1c results using the equation derived from a study of 507 normal and diabetic adults. Minority populations were underrepresented and children were not included. (Diabetes Care 31:3968-4221, 2008). The eAG is not equivalent to a fasting glucose. Blood 06/27/2022 9:39 AM SAFETY AND SECURITY MANAGER 06/27/2022 9:39 AM SAFETY AND SECURITY MANAGER Windy Stark MD POINT OF CARE TEST ORDERABL ES Final Result [facility] Department [place] [address] * Dexa Axial Skeleton Bone Density 1 or 2 Site (09/14/2019 10:34 AM SAFETY AND SECURITY MANAGER) Anatomical Region Laterality Modality Body N/A Digital Radiogra phy 09/14/2019 1:03 PM SAFETY AND SECURITY MANAGER Impressions 09/14/2019 1:06 PM SAFETY AND SECURITY MANAGER Low bone mass (osteopenia) which depending on the clinical circumstances may result in a moderate increased risk of fragility fracture. If followup is to be done, for technical reasons, it should be performed on this same machine. Electronically signed by: Saturnino Marion M.D. Narrative 09/14/2019 1:06 PM SAFETY AND SECURITY MANAGER EXAM: Bone mineral density [facility]. HISTORY: Osteopenia postmenopausal. DXA BMD was done at [facility] on a HoloReviews42 Discovery CI. Precision testing at this site [...] MD - 09/14/2019 EXAM: Bone mineral density [facility]. HISTORY: Osteopenia postmenopausal. DXA BMD was done at [facility] on a HoloReviews42 Discovery CI. Precision testing at this site [...] by: Saturnino Marion M.D. Windy Stark MD [facility] DXA PROCEDURES Final Re sult * Screening Mammogram Bilateral W Contreras (09/14/2019 10:09 AM SAFETY AND SECURITY MANAGER) Anatomical Region Laterality Modality Breast Bilateral Mammography Narrative 09/15/2019 7:24 AM SAFETY AND SECURITY MANAGER Screening Mammogram Bilateral W Contreras: 09/14/19 Clinical: [...] 1 - Negative us Windy Stark MD [facility] MAMMO PROCEDURES Final Result from Last 3 Months or Most Recently Relevant to Health Maintenance Insurance [place] [id number] [place] [id number] UHC MEDICARE ADVANTAGE [place] [id number] Care Teams Car Cooper Relationship Specialty Start Date End Date Alexa Roberts MD [address] [place] [address] PCP - General Family Medicine 02/12/22 Windy Stark MD [address] [place] [address] Consulting Physician Obstetrics and Gynecology 02/06/22
--- OUTSIDE RECORDS SUMMARY | 2025-02-24 09:51 | XMS_ITS | Continuity of Care Document ---
Author Organization [facility] Address [address] [place] [address] Phone Care Team Providers Care Fly Winder Name Role Phone Rah Kim MD Unavailable [...] Encounter Office/outpat ient visit,est, mod [facility], [address] [place] [address], [id number], [place] tel:[phone] [facility] Follow Up of right ankle (chief complaint) Presence of right artificial ankle jointPrimary osteoarthriti s, right ankle and foot Oct- 9 Judy Monreal. [address] [place] [address], [place] [address], [place], [address], [place]. tel:[phone] Referring Provider: Rah Navarrete, [address] [place] [address], [place], [address]. tel:[phone] Office/outpat ient visit,est, mod [facility], [address], [place], [place], [id number], [place] [phone] [facility] Follow Up For Ankle Replacement (chief complaint) Presence of right artificial ankle jointPrimary osteoarthriti s, right ankle and footShort Achilles tendon (acquired), right ankle Apr- 8 Judy Monreal. [address] [facility], [address], [place], [address], [place]. tel: [phone] Referring Provider: Rah Navarrete, [address] [facility] [address], [place], [address]. tel:[phone] Family History Family Member Type Diagnosis Age At Onset Sister Problem (finding) Osteoarthritis Sister Problem (finding) Diabetes Father Problem (finding) Gout Father Problem (finding) Heart Disease Sister Problem (finding) Hypertension Mother Problem (finding) Cancer, unknown Father Problem (finding) Cancer, unknown Father Problem (finding) Osteoarthritis Payers Payer name Insurance type Covered libertarian ID Authoriza tion(s) Medicare [place] W[place] Part B [id number] [address] [facility] [id number] Social History Type Description Quantity Date Captured [...]
[2025-02-24 10:31] LABS: Albumin Level 4.2 g/dL (3.5-5.1); Anion Gap 9 mmol/L (4-12); Blood Urea Nitrogen 17 mg/dL (7-17); Calcium 9.9 mg/dL (8.4-10.2); Carbon Dioxide 24 mmol/L (22-30); Chloride 106 mmol/L (98-107); Estimated Glomerular Filt Rate 56; Glucose 178 mg/dL (65-110); Potassium 4.4 mmol/L (3.4-5.0); Sodium 139 mmol/L (137-145)
== END 2025-02-24 09:48 | disposition home or self-care (01) ==
LOC: ANHLAB 09:49
PROVIDERS: PCP Family Medicine; Visit Provider Internal Medicine Nephrology
DX: N18.32 Chronic kidney disease, stage 3b (principal)
CPT/HCPCS: 36415; 80069

== ENCOUNTER 2025-05-24 11:12 | Outpatient (CLI) | payer MEDICARE, SELFPAY ==
[2025-05-24 11:44] LABS: Total Protein Urine Random 18 mg/dL; Ur Ttl Prot Creatinine Ratio 0.25 mg/mg (0-0.20)
[2025-05-24 11:51] LABS: Albumin Level 4.3 g/dL (3.5-5.1); Anion Gap 5 mmol/L (4-12); Blood Urea Nitrogen 20 mg/dL (7-17); Calcium 10.2 mg/dL (8.4-10.2); Carbon Dioxide 30 mmol/L (22-30); Chloride 102 mmol/L (98-107); Estimated Glomerular Filt Rate 49; Glucose 164 mg/dL (65-110); Potassium 4.4 mmol/L (3.4-5.0); Sodium 137 mmol/L (137-145)
--- OUTSIDE RECORDS SUMMARY | 2025-05-24 12:27 | XMS_ITS | Clinical Summary ---
Author Organization [facility] Address [address] [place] [address] Phone Care Team Providers Care Printed Circuit Board Assembly Repairer Name Role Phone Alexa Roberts MD Primary Care Provider [phone] Allergies Active Allergy Reactions Criticality Noted Date Comments Metformin Diarrhea 12/26/2019 Penicillin G Rash Medium 07/06/2019 Medications Blood Glucose Monitoring Suppl (Inneractive VERIO FLEX SYSTEM) w/Device kit USE TO [...] THE SKIN WITH MEALS 12/09/2019 Active Lancets (TOOVIATOUCH DELICA PLUS [id number]) misc USE DIRECTED TO TEST BLOOD SUGAR [...] (04/11/2022): Added automatically from request for surgery [id number] Last Assessment & Plan: Discussed with patient the potential risk of undiagnosed abnormal cells of the uterine lining or uterine cancer. Discussed the option of seeing siene maker Oncology for 2nd opinions and pathology was negative. I recommend patient see siene maker Oncology if she has any additional recurrence [...] (04/11/2022): 01/2022: CA125 WNL. F/U US at [facility] shows 2 benign appearing simple [...] 02/28/2002 Influenza Vaccine (#1) 2025 Insurance MEDICARE [facility] Care Teams Printed Circuit Board Assembly Repairer Relationship Specialty Start Date End Date Alexa Roberts MD [address] [place] [address] PCP - General Internal Medicine 06/27/21
--- OUTSIDE RECORDS SUMMARY | 2025-05-24 12:27 | XMS_ITS | Clinical Summary ---
Author Organization [facility] Address [address] [place] [address] Care Team Providers Care Rib Puller Name Role Phone Windy Stark MD Unavailable [phone] Alexa Roberts MD Primary Care Provider [phone] Allergies Active Allergy Reactions Criticality Noted Date [...] AM CDT): Here for annual exam. 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 Encouraged regular exercise and [...] (02/13/2022): Added automatically from request for surgery [id number] Assessment & Plan (05/20/2022 1:47 PM CDT): Discussed ultrasound findings with patient in detail today. Lining is still appears somewhat thickened for someone postmenopausal. It is unclear whether patient had postmenopausal spotting again or if it was withdrawal from the progesterone medication since it was more than a week after completing the medication. Patient desires 2nd opinion with quarry equipment operator oncologist. Assessment & Plan (03/15/2022 4:13 PM CDT): Discussed with patient the potential risk of undiagnosed abnormal cells of the uterine lining or uterine cancer. Discussed the option of seeing quarry equipment operator Oncology for 2nd opinions and pathology was negative. 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 [...] AM CDT Pulse 73 09/30/2022 2:11 PM FIGHTER PILOT Temperature 35.6 C (96 F) 09/30/2022 2:11 PM FIGHTER PILOT Respiratory Rate 16 09/30/2022 2:11 PM FIGHTER PILOT Oxygen Saturation 98% 09/30/2022 2:11 PM FIGHTER PILOT Inhaled Oxygen Concentration - - Weight 116.3 [...] Visit 65+ 11/08/2023 11/07/2022 Influenza Vaccine (#1) 2025 06/14/2019 Medical Devices Implanted Type Area Chief Accountant Device Identifier Shelf Expiration Date Model / Serial / Lot Knee Left: Knee Screw Right: Ankle Procedures Procedure Name Priority Date/Time Associated Diagnosis Comments EGFR STAT 07/05/2022 8:33 AM FIGHTER PILOT POCT HEMOGLOBIN A1C Routine 06/27/2022 9:39 AM FIGHTER PILOT DEXA AXIAL SKELETON BONE DENSITY 1 OR MORE SITES Schedule Routine, Read Routine (OP Routine) 09/14/2019 10:34 AM FIGHTER PILOT Asymptomatic menopausal state SCREENING MAMMOGRAM BILATERAL W CONTRERAS Schedule Routine, Read Routine (OP Routine) 09/14/2019 10:09 AM FIGHTER PILOT Encounter for screening mammogram for malignant neoplasm of breast from Last 3 Months or Most Recently Relevant to Health Maintenance Results * (ABNORMAL) eGFR (07/05/2022 8:33 AM FIGHTER PILOT) eGFR 45(L) 90 - 130 mL/min/1. 73 m2 [facility] Comment: Interpretive Data Reference Interval Normal >/= [...] last reviewed 2021. Blood 07/05/2022 8:33 AM FIGHTER PILOT 07/05/2022 8:52 AM FIGHTER PILOT David Jiménez MD PhD LAB BLOOD ORDERABLES Fi nal Result [facility] One [facility] Department [place] [address] * (ABNORMAL) POCT hemoglobin A1c (06/27/2022 9:39 AM FIGHTER PILOT) Hgb A1C, POC 8.8(H) 4.0 - 5.6 % [facility] Est Average Gluc POC 206 mg/dL [facility] Comment: The ADA recommends reporting an estimated Average Glucose (eAG) with all Hemoglobin A1c results using the equation derived from a study of 507 normal and diabetic adults. Minority populations were underrepresented and children were not included. (Diabetes Care 31:1954-4623, 2008). The eAG is not equivalent to a fasting glucose. Blood 06/27/2022 9:39 AM FIGHTER PILOT 06/27/2022 9:39 AM FIGHTER PILOT Windy Stark MD POINT OF CARE TEST ORDERABL ES Final Result Performing Organization Address City/State/ZIP Co co Phone Number [facility] Department [place] [address] * Dexa Axial Skeleton Bone Density 1 or 2 Site (09/14/2019 10:34 AM FIGHTER PILOT) Anatomical Region Laterality Modality Body N/A Digital Radiogra phy 09/14/2019 1:03 PM FIGHTER PILOT Impressions 09/14/2019 1:06 PM FIGHTER PILOT Low bone mass (osteopenia) which depending on the clinical circumstances may result in a moderate increased risk of fragility fracture. If followup is to be done, for technical reasons, it should be performed on this same machine. Electronically signed by: Saturnino Marion M.D. Narrative 09/14/2019 1:06 PM FIGHTER PILOT EXAM: Bone mineral density [facility]. HISTORY: Osteopenia postmenopausal. DXA BMD was done at [facility] on a Entegrion Discovery CI. Precision testing at this site [...] MD - 09/14/2019 EXAM: Bone mineral density [facility]. HISTORY: Osteopenia postmenopausal. DXA BMD was done at [facility] Breast [facility] on a Hologic Discovery CI. [...] by: Saturnino Marion M.D. Windy Stark MD [facility] DXA PROCEDURES Final Re sult * Screening Mammogram Bilateral W Contreras (09/14/2019 10:09 AM FIGHTER PILOT) Anatomical Region Laterality Modality Breast Bilateral Mammography Narrative 09/15/2019 7:24 AM FIGHTER PILOT Screening Mammogram Bilateral W Contreras: 09/14/19 Clinical: [...] Most Recently Relevant to Health Maintenance Insurance [facility] MEDICARE ADVANTAGE [place] [id number] UHC MEDICARE ADVANTAGE [place] [id number] UHC MEDICARE ADVANTAGE Care Teams Rib Puller Relationship Specialty Start Date End Date Alexa Roberts MD [address] [place] [address] PCP - General Family Medicine 02/12/22 Windy Stark MD [address] [place] [address] Consulting Physician Obstetrics and Gynecology 02/06/22
== END 2025-05-24 11:13 | disposition home or self-care (01) ==
LOC: ANHLAB 11:13
PROVIDERS: PCP Family Medicine; Visit Provider Internal Medicine Nephrology
DX: I12.9 Hypertensive chronic kidney disease with stage 1 through stage 4 chronic kidney disease, or unspecified chronic kidney disease (principal); E11.22 Type 2 diabetes mellitus with diabetic chronic kidney disease; N18.31 Chronic kidney disease, stage 3a; Z79.4 Long term (current) use of insulin
CPT/HCPCS: 36415; 80069; 82570; 84156

== ENCOUNTER 2025-06-05 12:34 | Emergency (ER) | payer MEDICARE, SELFPAY ==
[2025-06-05 12:45] VITALS: BP 148/78; PULSE 72; RESP 16; TEMP 36.1; O2SAT 98
--- NOTE | 2025-06-05 13:18 | ED_ITS ---
HPI - Eye Problem General Chief complaint: Eye Problems Stated complaint: R eye irritation Time Seen by Provider: 06/05/25 13:08 Source: patient and RN notes reviewed Mode of arrival: ambulatory Limitations: no limitations History of Present Illness HPI Narrative: 75-year-old female patient presents today complaining of bilateral eye irritation, watering x2 days with crusting this morning, right greater than left . She is also reporting some redness and swelling to the right upper eyelid this morning. Denies pain reports the eyelid is a little tender. Denies vision changes or purulent discharge. She applied warm compress this morning to help with the crusting in states this did provide relief. 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 Related Data Home Medications ?Medication ?Instructions ?Recorded ?Confirmed ?Last Taken ?Type ferrous sulfate 325 mg (65 mg 325 mg PO DAILY 08/19/19 06/02/25 Unknown History iron) tablet (Feosol) krill [id number]-epa 300 3 cap PO DAILY 04/27/20 06/02/25 Unknown History mg-90 mg (27 mg-45 mg) capsule cholecalciferol (vitamin D3) 50 50 mcg PO DAILY 06/02/25 Unknown History mcg (2,000 unit) capsule Allergies Allergy/AdvReac Type Severity Reaction Status Date / Time empagliflozin (From Allergy Mild Other Verified 06/02/25 12:09 Jardiance) Penicillins Allergy Unknown Rash Verified 06/02/25 12:09 metformin AdvReac Severe Diarrhea Verified 06/02/25 12:09 terbinafine AdvReac Intermediate Rash Verified 06/02/25 12:09 biofreeze Allergy Mild Rash Uncoded 06/02/25 12:09 [facility] Past Medical History Medical History Hemorrhoids Vitamin D deficiency Neuropathy in diabetes Iron deficiency Trigger finger, right ring finger GERD (gastroesophageal reflux disease) Aortic stenosis Osteoporosis Anemia Type 2 diabetes mellitus with hyperglycemia TORRES (dyspnea on exertion) Morbid obesity with BMI of 50.0-59.9, adult Diastolic dysfunction Dyslipidemia Hypertension SOFIA on CPAP Arthritis, multiple joint involvement Chronic pain of right ankle Surgical History Surgical History H/O hysterectomy for benign disease H/O dilation and curettage Hx of knee surgery right knee, torn meniscus History of carpal tunnel release left, 09/11/2011, Dr. Chew right, 1994 History of tubal ligation History of open reduction and internal fixation (ORIF) procedure right ankle Hx of arthroscopy of right knee 06/29/2014- Dr. Chew Family History Family History Sibling Diabetes mellitus Father Family history of hypercholesterolemia Family history of cardiovascular disease Family history of coronary artery disease Family history of thoracic aortic aneurysm Mother Family history of malignant neoplasm of ovary Other Cancer Cerebrovascular accident Family history of arthritis Family history of malignant neoplasm Family history of malignant neoplasm of esophagus Hearing loss Hypertension Liver cancer Prostate disease Social History Social History Smoking status: Never smoker Second hand tobacco smoke exposure: Yes Alcohol intake: current Alcohol use details: Rarely 2 times per year Substance use: never Do You Feel Safe in your Home?: Yes Lack of Transportation: No Lack of Food: Never True Current Housing: I Have Housing Concerned About Future Housing: No Difficulty Paying Gas/Electric Bills: No Difficulty Paying for Meds: No Currently Unemployed: No Education: High School Diploma/GED Difficulty w/ Childcare or Family Care: No Living arrangements: with family Occupation/Education: retired Additional occupation/education comments: Works maintenance parts technician at the school Gender identity (if verbalized by the patient): Female Spiritual care concerns: No Agree to blood products: Yes Comments At time of signature, I have reviewed and agree with nursing past medical, surgical, social and family history unless otherwise noted. Please see nursing chart for further information. There is no relevant family history pertinent to the presenting complaint Exam Narrative: GENERAL: Well-appearing, well-nourished, and in no acute distress. HEAD: Normocephalic, atraumatic. EYES: EOMI. PERRL. Mildly injected conjunctiva bilaterally with no active watering or drainage. Right upper eyelid along the lash line is mildly erythematous and edematous with small area of tenderness in the medial aspect. No pustule noted internally or externally upper eyelid. Left eyelids normal. ENT: Mucous membranes pink and moist. NECK: Normal AROM. CHEST: No respiratory distress. EXTREMITIES: Normal range of motion. No edema. SKIN: Warm, dry, no rash. Capillary refill normal. Normal skin turgor. NEURO: No focal deficits. Alert and oriented x3. Gait steady. PSYCH: Normal affect. No signs of depression or anxiety. Course Course Level of Care: Express Care Visit Vital Signs Vital signs: Vital Signs Temperature 96.9 F L 06/05/25 12:45 Pulse Rate 72 06/05/25 12:45 Respiratory Rate 16 06/05/25 12:45 Blood Pressure 148/78 H 06/05/25 12:45 Pulse Oximetry 98 06/05/25 12:45 Temperature 96.9 F L 06/05/25 12:45 Pulse Rate 72 06/05/25 12:45 Respiratory Rate 16 06/05/25 12:45 Blood Pressure 148/78 H 06/05/25 12:45 Pulse Oximetry 98 06/05/25 12:45 Reviewed MDM - Eye Problem MDM Narrative Medical decision making narrative: 75-year-old female patient presents today complaining of bilateral eye irritation, watering x2 days with crusting this morning, right greater than left. She is also reporting some redness and swelling to the right upper eyelid this morning. Warm compress this morning with some relief. Upon exam, Mildly injected conjunctiva bilaterally with no active watering or drainage. Right upper eyelid along the lash line is mildly erythematous and edematous with small area of tenderness in the medial aspect. Injected conjunctiva likely due to allergic irritation. Right upper eyelid redness and edema likely due to developing stye. Recommend continuing warm compresses. Will prescribe some erythromycin eye ointment for external use. Have suggested antihistamine eyedrops if eyes are itching and watering, but to stop immediately if eyes get too dry. Also recommended gently cleansing with a mix of water and baby shampoo along the right upper lash line. Patient agrees with plan. Vital signs stable. Anticipatory guidance given Differential Diagnosis Differential diagnosis: Likely conjunctivitis and other (Stye, blepharitis) Critical Care Time Critical Care Time Critical Care Time: No Discharge Plan Discharge Clinical Impression: Acute allergic conjunctivitis of both eyes, Hordeolum externum of right eye Patient Disposition: Home Condition: Stable Instructions: Justin (ED) Additional Instructions: Please use the eye ointment as directed. You may consider using an antihistamine eyedrops to help with the itching such as [id number] Zaditor. You may cleanse the right upper eyelash line with diluted baby shampoo on a Q-tip once daily. Follow-up with your eye doctor within 1 week if symptoms persist. Patient Language: Barbadian Prescriptions: New erythromycin 5 mg/gram (0.5 %) ointment 1 applic EACH EYE HS Qty: 3.5 0RF No Action ferrous sulfate [Feosol] 325 mg (65 mg iron) tablet 325 mg PO DAILY krill [id number]-[id number]-dha-epa 300-90 (27-45) mg capsule 3 cap PO DAILY (DME) CPAP 9 cm H20 See Rx Instructions .Route .MEDSUPPLY Qty: 1 0RF Rx Instructions: As directed nightly (DME) pen needle, diabetic [BD Ultra-Fine Short Pen Needle] 31 gauge x 5/16 needle See Rx Instructions .Route Qty: 400 6RF Rx Instructions: As directed, 4 shots daily calcitriol 0.25 mcg capsule 0.25 mcg PO 3XW Qty: 36 3RF Rx Instructions: take on Mondays, Wednesdays, and Fridays cholecalciferol (vitamin D3) 50 mcg (2,000 unit) capsule 50 mcg PO DAILY (DME) FreeStyle Tahira 2 Sensor Kit See Rx Instructions .Route Qty: 6 2RF Rx Instructions: Use to monitor glucose Gvoke HypoPen 2-Pack 1 mg/0.2 mL auto-injector 1 mg subcut ONCE Qty: 0.4 4RF Rx Instructions: may repeat once after 15 minutes if no response dapagliflozin propanediol [Farxiga] 10 mg tablet 10 mg PO QAM Qty: 90 1RF Ozempic 2 mg/dose (8 mg/3 mL) pen injector 2 mg subcut WEEKLY 90 Days Qty: 9 1RF insulin lispro [Humalog KwikPen Insulin] 100 unit/mL insulin pen 66 unit subcut DAILY MDD 90 Qty: 81 3RF Rx Instructions: Humalog 25 units before breakfast, 16 units before lunch, 20 units before supper + SSI Please add Humalog for high sugar before meals blood sugar 150-175 - take additional 1 units blood sugar 176-200- take additional 2 units blood sugar 201-225- take additional 3 units blood sugar 226-250- take additional 4 units blood sugar 251-275- take additional 5 units blood sugar 276-300- take additional 6 units blood sugar 301-325- take additional 7 units blood sugar 326-350- take additional 8 units blood sugar more than 351- take additional 9 units insulin glargine U-300 conc [Toujeo Max U-300 SoloStar] 300 unit/mL (3 mL) insulin pen 35 unit subcut DAILY 90 Days Qty: 12 1RF rosuvastatin 40 mg tablet 40 mg PO DAILY Qty: 90 3RF fluoxetine 20 mg capsule See Rx Instructions .ROUTE .COMPLEX Qty: 90 3RF Dose Instruction: TAKE 1 CAPSULE BY MOUTH DAILY Rx Instructions: TAKE 1 CAPSULE BY MOUTH DAILY famotidine [Zantac-360 (famotidine)] 20 mg tablet 20 mg PO QHS Qty: 90 1RF furosemide 20 mg tablet See Rx Instructions .ROUTE .COMPLEX Qty: 90 2RF Dose Instruction: TAKE 1 TABLET BY MOUTH EVERY MORNING Rx Instructions: TAKE 1 TABLET BY MOUTH EVERY MORNING gabapentin 100 mg capsule 100 mg PO HS Qty: 90 2RF Rx Instructions: Take every night tramadol 50 mg tablet 50 mg PO Q6H PRN (Reason: pain) Qty: 60 0RF losartan 25 mg tablet See Rx Instructions .ROUTE .COMPLEX Qty: 90 2RF Dose Instruction: TAKE 1 TABLET BY MOUTH DAILY Rx Instructions: TAKE 1 TABLET BY MOUTH DAILY (DME) FreeStyle Precision Ruddy Strips Strip See Rx Instructions .Route Qty: 300 2RF Rx Instructions: check sugar three times daily Follow-up/Referrals: UNKNOWN,DOCTOR [Primary Care Provider] Time of Disposition: 13:26
== END 2025-06-05 13:30 | disposition home or self-care (01) ==
PROVIDERS: Emergency Provider Nurse Practitioner
DX: H10.13 Acute atopic conjunctivitis, bilateral (principal); H00.011 Hordeolum externum right upper eyelid; E11.42 Type 2 diabetes mellitus with diabetic polyneuropathy; Z79.4 Long term (current) use of insulin; Z79.85 Long-term (current) use of injectable non-insulin antidiabetic drugs; I35.0 Nonrheumatic aortic (valve) stenosis; I10 Essential (primary) hypertension; E78.5 Hyperlipidemia, unspecified; G47.33 Obstructive sleep apnea (adult) (pediatric); M15.9 Polyosteoarthritis, unspecified; E66.01 Morbid (severe) obesity due to excess calories; Z68.42 Body mass index [BMI] 45.0-49.9, adult; M81.0 Age-related osteoporosis without current pathological fracture; D64.9 Anemia, unspecified; E55.9 Vitamin D deficiency, unspecified; K21.9 Gastro-esophageal reflux disease without esophagitis
CPT/HCPCS: 99213; G0463

== ENCOUNTER 2025-07-08 07:25 | Outpatient (CLI) | payer MEDICARE, SELFPAY ==
--- OUTSIDE RECORDS SUMMARY | 2025-07-08 07:29 | XMS_ITS | Clinical Summary ---
Author Organization [facility] Address [address] [place] [id number] Phone Care Team Providers Care Manager Heavy Duty Name Role Phone Alexa Roberts MD Primary Care Provider [phone] Allergies Active Allergy Reactions Criticality Noted Date Comments Metformin Diarrhea 12/26/2019 Penicillin G Rash Medium 07/06/2019 Medications Blood Glucose Monitoring Suppl ([email or web address] VERIO FLEX SYSTEM) w/Device kit USE TO [...] THE SKIN WITH MEALS 12/09/2019 Active Lancets ([place] Auto SalesTOUCH DELICA PLUS [id number]) misc USE DIRECTED TO TEST BLOOD SUGAR [...] (04/11/2022): Added automatically from request for surgery [id number] Last Assessment & Plan: Discussed with patient the potential risk of undiagnosed abnormal cells of the uterine lining or uterine cancer. Discussed the option of seeing cushion worker Oncology for 2nd opinions and pathology was negative. I recommend patient see cushion worker Oncology if she has any additional recurrence [...] (04/11/2022): 01/2022: CA125 WNL. F/U US at [facility] shows 2 benign appearing simple cysts left [...] 02/28/2002 Influenza Vaccine (#1) 2025 Insurance MEDICARE [facility] Care Teams Manager Heavy Duty Relationship Specialty Start Date End Date Alexa Roberts MD [address] [place] [address] PCP - General Internal Medicine 06/27/21
--- OUTSIDE RECORDS SUMMARY | 2025-07-08 07:29 | XMS_ITS | Clinical Summary ---
Author Organization [facility] Address [address] [place] [address] Care Team Providers Care Hat Liner Name Role Phone Windy Stark MD Unavailable [phone] Alexa Roberts MD Primary Care Provider [phone] Allergies Active Allergy Reactions Criticality Noted Date [...] AM CDT): Here for annual exam. Normal provider relations representative exam today. Encouraged regular exercise and healthy [...] (02/13/2022): Added automatically from request for surgery [id number] Assessment & Plan (05/20/2022 1:47 PM CDT): Discussed ultrasound findings with patient in detail today. Lining is still appears somewhat thickened for someone postmenopausal. It is unclear whether patient had postmenopausal spotting again or if it was withdrawal from the progesterone medication since it was more than a week after completing the medication. Patient desires 2nd opinion with provider relations representative oncologist. Assessment & Plan (03/15/2022 4:13 PM CDT): Discussed with patient the potential risk of undiagnosed abnormal cells of the uterine lining or uterine cancer. Discussed the option of seeing provider relations representative Oncology for 2nd opinions and pathology was negative. 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 [employer] Not on file Not on [...] AM CDT Pulse 73 09/30/2022 2:11 PM [facility] Temperature 35.6 C (96 F) 09/30/2022 2:11 PM [facility] Respiratory Rate 16 09/30/2022 2:11 PM [facility] Oxygen Saturation 98% 09/30/2022 2:11 PM [facility] Inhaled Oxygen Concentration - - Weight 116.3 [...] 2025 06/14/2019 Medical Devices Implanted Type Area Feed Crusher Operator Device Identifier Shelf Expiration Date Model / Serial / Lot Knee Left: Knee Screw Right: Ankle Procedures Procedure Name Priority Date/Time Associated Diagnosis Comments EGFR STAT 07/05/2022 8:33 AM [facility] POCT HEMOGLOBIN A1C Routine 06/27/2022 9:39 AM [facility] DEXA AXIAL SKELETON BONE DENSITY 1 OR MORE SITES Schedule Routine, Read Routine (OP Routine) 09/14/2019 10:34 AM [facility] Asymptomatic menopausal state SCREENING MAMMOGRAM BILATERAL W CONTRERAS Schedule Routine, Read Routine (OP Routine) 09/14/2019 10:09 AM [facility] Encounter for screening mammogram for malignant neoplasm of breast from Last 3 Months or Most Recently Relevant to Health Maintenance Results * (ABNORMAL) eGFR (07/05/2022 8:33 AM [facility]) eGFR 45(L) 90 - 130 mL/min/1. 73 m2 [facility] Comment: Interpretive Data Reference Interval Normal >/= [...] last reviewed 2021. Blood 07/05/2022 8:33 AM [facility] 07/05/2022 8:52 AM [facility] David Jiménez MD PhD LAB BLOOD ORDERABLES Fi nal Result [facility] Department [place] [address] * (ABNORMAL) POCT hemoglobin A1c (06/27/2022 9:39 AM [facility]) Hgb A1C, POC 8.8(H) 4.0 - 5.6 % [facility] Est Average Gluc POC 206 mg/dL [facility] Comment: The ADA recommends reporting an estimated Average Glucose (eAG) with all Hemoglobin A1c results using the equation derived from a study of 507 normal and diabetic adults. Minority populations were underrepresented and children were not included. (Diabetes Care 31:3308-6829, 2008). The eAG is not equivalent to a fasting glucose. Blood 06/27/2022 9:39 AM [facility] 06/27/2022 9:39 AM [facility] Windy Stark MD POINT OF CARE TEST ORDERABL ES Final Result Performing Organization Address City/State/ZIP Co wv Phone Number [facility] Department [place] [address] * Dexa Axial Skeleton Bone Density 1 or 2 Site (09/14/2019 10:34 AM [facility]) Anatomical Region Laterality Modality Body N/A Digital Radiogra phy 09/14/2019 1:03 PM [facility] Impressions 09/14/2019 1:06 PM [facility] Low bone mass (osteopenia) which depending on the clinical circumstances may result in a moderate increased risk of fragility fracture. If followup is to be done, for technical reasons, it should be performed on this same machine. Electronically signed by: Saturnino Marion M.D. Narrative 09/14/2019 1:06 PM [facility] EXAM: Bone mineral density [facility]. HISTORY: Osteopenia postmenopausal. DXA BMD was done at [facility] on a [employer]ipher[employer] Discovery CI. Precision testing at this site [...] MD - 09/14/2019 EXAM: Bone mineral density [facility]. HISTORY: Osteopenia postmenopausal. DXA BMD was done at [facility] Breast [facility] on a Hologic Discovery CI. [...] by: Saturnino Marion M.D. Windy Stark MD [facility]ED[place] Final Re sult * Screening Mammogram Bilateral W Contreras (09/14/2019 10:09 AM [facility]) Anatomical Region Laterality Modality Breast Bilateral Mammography Narrative 09/15/2019 7:24 AM [facility] Screening Mammogram Bilateral W Contreras: 09/14/19 Clinical: [...] Most Recently Relevant to Health Maintenance Insurance [facility] MEDICARE [facility]ANT[facility] Address: [address] [address] [place] [id number] UHC MEDICARE ADVANTAGE [facility] MEDICARE Address: [address] [address] [place] [address] UHC MEDICARE ADVANTAGE Care Teams Hat Liner Relationship Specialty Start Date End Date Alexa Roberts MD [address] [place] [address] PCP - General Family Medicine 02/12/22 Windy Stark MD [address] [place] [address] Consulting Physician Obstetrics and Gynecology 02/06/22
--- NOTE | 2025-07-08 07:46 | ECHO_ITS ---
Patient Info Name: Shala Lambert Age: 75 years : 1950 Gender: Female Ht: 61 in Wt: 250 lbs BSA: 2.28 m2 HR: 56 bpm BP: 165 / 87 mmHg Technical Quality: Good Exam Date: 07/08/2025 8:09 AM Patient Status: O Admit Date: 07/08/2025 Exam Type: CA echo doppler color flow Complete two-dimensional, color flow and Doppler transthoracic echocardiogram is performed. Director Of Consumer Marketing: Herminia Ragland Attending Provider: Kareem Yeh DO Summary 1. Complete two-dimensional, color flow and Doppler transthoracic echocardiogram is performed. 2. Left ventricular chamber dimension is normal. 3. Left ventricular systolic function is normal, estimated at 60-65. 4. There is mild concentric increased left ventricular wall thickness. 5. The left ventricular diastolic function is grade I diastolic dysfunction. 6. E/e' 20 is elevated. 7. Left atrial chamber dimension is mildly enlarged. 8. The aortic valve is not well visualized. Cannot determine number of aortic valve leaflets. 9. There is moderate aortic valve sclerosis. 10. There is mild aortic valve stenosis with a peak velocity of 290 cm/s, mean gradient of 19 mmHg, and aortic valve area of 1.8 cm2. 11. The mitral valve has a moderately calcified annulus. 12. There is mild to moderate mitral valve regurgitation. Left Ventricle E/e' 20 is elevated. Left ventricular chamber dimension is normal. Left ventricular systolic function is normal, estimated at 60-65. There is mild concentric increased left ventricular wall thickness. The left ventricular diastolic function is grade I diastolic dysfunction. Right Ventricle Right ventricular chamber dimension is normal. Right ventricular systolic function is normal and with normal TAPSE 2.1 cm. Left Atria Left atrial chamber dimension is mildly enlarged. Right Atria Right atrial chamber dimension is normal. Aortic Valve The aortic valve is not well visualized. Cannot determine number of aortic valve leaflets. There is moderate aortic valve sclerosis. There is mild aortic valve stenosis with a peak velocity of 290 cm/s, mean gradient of 19 mmHg, and aortic valve area of 1.8 cm2. There is no aortic valve regurgitation. Pulmonic Valve There is no pulmonic regurgitation. Mitral Valve The mitral valve has a moderately calcified annulus. There is no mitral valve stenosis. There is mild to moderate mitral valve regurgitation. Tricuspid Valve There is no tricuspid valve regurgitation. Pericardium/Pleural There is no pericardial effusion. Inferior Vena Cava Normal inferior vena cava with >50% collapse upon inspiration consistent with normal right atrial pressure, 5 mmHg. Aorta The aortic root size at the sinus of Valsalva is normal. Left Ventricular Outflow Tract Name Value Normal LVOT 2D LVOT Diameter 2.0 cm LVOT Doppler LVOT Peak Velocity 152 cm/s LVOT Peak Gradient 8 mmHg LVOT Mean Gradient 6 mmHg LVOT VTI 46 cm LVOT VTI/AV VTI Ratio 0.6 LVOT Stroke Volume 139 ml LVOT CO 7.7 l/min LVOT CI 3.4 l/min/m2 Pulmonic Valve Name Value Normal RVOT Doppler RVOT Peak Velocity 92 cm/s RVOT Peak Gradient 3 mmHg PV Doppler PV Peak Velocity 98 cm/s PV Peak Gradient 4 mmHg Mitral Valve Name Value Normal MV Diastolic Function MV E Peak Velocity 120 cm/s MV A Peak Velocity 131 cm/s MV E/A 0.9 MV Decel Time (PW) 340 ms MV Annular TDI MV E/e' (Septal) 24.1 MV E/e' (Lateral) 18.0 MV E/e' (Average) 21.0 Tricuspid Valve Name Value Normal Estimated PAP/RSVP RA Pressure 5 mmHg <=5 Aortic Valve Name Value Normal AV Doppler AV Peak Velocity 290 cm/s AV Peak Gradient 34 mmHg AV Mean Gradient 19 mmHg AV VTI 78 cm AV Area (Cont Eq VTI) 1.8 cm2 >=3.0 AV Area (Cont Eq Marky) 1.6 cm2 AV DI (Marky) 0.52 AV Regurgitation 2D LVOT Area 3.0 cm2 Ventricles Name Value Normal LV Dimensions 2D/MM IVS Diastolic Thickness (2D) 1.0 cm 0.6-1.0 LVID Diastole (2D) 4.5 cm 3.8-5.2 LVIW Diastolic Thickness (2D) 1.2 cm 0.6-0.9 LVID Systole (2D) 2.8 cm 2.2-3.5 LVOT Diameter 2.0 cm LV Mass (2D Cubed) 175.75 g 67.00-162.00 LV Mass Index (2D Cubed) 77 g/m2 43-95 Relative Wall Thickness (2D) 0.51 <=0.42 LV Fractional Shortening/Ejection Fraction 2D/MM LV Fractional Shortening (2D) 38 % 27-45 LV EF (2D Teichholz) 68 % LV Diastolic Volume (4C MOD) 106 ml LV EF (4C MOD) 64 % LV Diastolic Volume (2C MOD) 80 ml LV EF (2C MOD) 67 % LV Diastolic Volume (BP MOD) 95 ml 46-106 LV Diastolic Volume Index (BP MOD) 41 ml/m2 29-61 LV Systolic Volume (BP MOD) 33 ml 14-42 LV Systolic Volume Index (BP MOD) 15 ml/m2 8-24 LV EF (BP MOD) 65 % 54-74 LV Diastolic Length (4C) 7.6 cm LV Systolic Length (4C) 6.2 cm LV Stroke Volume (4C MOD) 68 ml Atria Name Value Normal LA Dimensions LA Volume (4C A-L) 76 ml LA Volume (BP A-L) 58 ml RA Dimensions RA Systolic Major [place] Length (4C) 4.2 cm 2.2-2.8 RA Area (4C) 10.4 cm2 <=18.0 Report Signatures
== END 2025-07-08 07:26 | disposition home or self-care (01) ==
LOC: ANHCARD 07:26
PROVIDERS: PCP Student in an Organized Health Care Education/Training Program; Visit Provider Internal Medicine Cardiovascular Disease
DX: I35.0 Nonrheumatic aortic (valve) stenosis (principal)
CPT/HCPCS: 93306